=== PATIENT | female | born 1970 | race Hispanic/Latino ===

== ENCOUNTER → 2016-05-11 | Outpatient (CLI) | payer MEDICAID ==
--- NOTE | 2016-05-11 14:35 | Diagnostic Imaging Report ---
EXAM: LUMBAR SPINE - 2-3 VIEWS INDICATION: LOW BACK PAIN COMPARISON: None. FINDINGS: There are 5 lumbar type vertebral bodies. Vertebral body heights are maintained. Mild degenerative endplate changes and lower lumbar facet arthropathy. Normal alignment. No acute fractures. IMPRESSION: Mild spondylotic changes in the lumbar spine. No acute radiographic findings. Dictated by: Dictated on workstation # [id number]
== END ==
LOC: RAD 12:42
PROVIDERS: ATTEND Pain Medicine Pain Medicine
DX: M54.5 Low back pain (principal)
CPT/HCPCS: 72100

== ENCOUNTER → 2016-05-13 | Outpatient (CLI) | payer MEDICAID | LOC: CARD 13:58 | PROVIDERS: ATTEND Radiology Radiation Oncology | DX: C73 Malignant neoplasm of thyroid gland (principal) | CPT/HCPCS: 79005 ==

== ENCOUNTER → 2016-05-25 | Outpatient (CLI) | payer MEDICAID ==
--- NOTE | 2016-05-25 15:47 | Diagnostic Imaging Report ---
STUDY: Whole body Iodine scan. TECHNIQUE: After the oral administration of 63.1 mCi iodine-131, 12 days prior to scanning, whole body scan images are performed at this time. INDICATION: Thyroid cancer. FINDINGS: There is expected thyroid bed intense activity related to remaining thyroid tissue with or without elements of remaining thyroid cancer. There is a diffuse nonfocal the mild to moderate increased liver uptake seen. This is likely physiologic based on the pattern of uptake. There is no evidence of metastatic disease. IMPRESSION: Thyroid bed activity as above. There is a diffuse homogeneous increased uptake in the liver likely physiologic. Correlation with liver ultrasound to confirm lack of underlying lesion is recommended. Dictated by: Dictated on workstation # [id number]
== END ==
LOC: CARD 14:46
PROVIDERS: ATTEND Radiology Radiation Oncology
DX: C73 Malignant neoplasm of thyroid gland (principal)
CPT/HCPCS: 78018

== ENCOUNTER 2016-06-09 13:49 | Outpatient (RCR) | payer MEDICAID, OTHER ==
[2016-04-02 08:00] LABS: THYROGLOBULIN LEVELC 24.3 ng/mL (1.60-59.90)
[2016-04-02 16:30] LABS: THYROGLOBULIN AUTOANTIBODY PT 0.05 Units (0.00-0.50)
[~2016-06-09 13:49] MED LIST: THYROTROPIN 1.1 MG VIAL IM SCH
== END 2016-06-29 | disposition home or self-care (01) ==
LOC: ONC 13:49
PROVIDERS: ATTEND Radiology Radiation Oncology
DX: C73 Malignant neoplasm of thyroid gland (principal)
CPT/HCPCS: 36415; 84432; 84443; 84703; 86800; 96372; 99211; 99214

== ENCOUNTER 2016-06-12 10:48 | Outpatient (CLI) | payer MEDICAID ==
[~2016-06-12] VITALS: Ht 160 cm; Wt 56.2 kg
--- OUTSIDE RECORDS SUMMARY | 2016-06-12 10:53 | XMS REPORT | Continuity of Care Document ---
Author Author [facility] Address Unknown Phone Unavailable Allergies Active Description Code Type Severity Reaction Onset Reported/Identified Relationship to Patient Clinical Status Yes Penicillins Drug Allergy 06/13/2012 Yes Penicillins Drug Allergy N/A N/A 06/13/2012 Medications Problems Date Dx Coded Attending Type Code Diagnosis Diagnosed By 06/13/2012 SHAYLA DANIELSON MD 599.0 URINARY TRACT INFECTION 06/13/2012 SHAYLA DANIELSON MD 620.2 OVARIAN CYST 06/13/2012 SHAYLA DANIELSON MD V04.81 FLU DX (3 YRS AND ABOVE, IM) 06/13/2012 599.0 URINARY TRACT INFECTION 06/13/2012 620.2 OVARIAN CYST 06/13/2012 V04.81 FLU DX (3 YRS AND ABOVE, IM) 06/13/2012 TALISHA DDS, LAZARO L 599.0 URINARY TRACT INFECTION 06/13/2012 GREEN DDS, LAZARO L 620.2 OVARIAN CYST 06/13/2012 GREEN DDS, LAZARO L V04.81 FLU DX (3 YRS AND ABOVE, IM) 06/13/2012 SHAYLA DANIELSON MD 599.0 URINARY TRACT INFECTION 06/13/2012 SHAYLA DANIELSON MD 620.2 OVARIAN CYST 06/13/2012 SHAYLA DANIELSON MD V04.81 FLU DX (3 YRS AND ABOVE, IM) 06/13/2012 SHAYLA DANIELSON MD 599.0 URINARY TRACT INFECTION 06/13/2012 SHAYLA DANIELSON MD 620.2 OVARIAN CYST 06/13/2012 SHAYLA DANIELSON MD V04.81 FLU DX (3 YRS AND ABOVE, IM) 06/13/2012 ALCIDES BURNS K 599.0 URINARY TRACT INFECTION 06/13/2012 ALCIDES BURNS K 620.2 OVARIAN CYST 06/13/2012 ALCIDES BURNS K V04.81 FLU DX (3 YRS AND ABOVE, IM) 06/13/2012 [facility], ALCIDES K 599.0 URINARY TRACT INFECTION 06/13/2012 [facility], ALCIDES K 620.2 OVARIAN CYST 06/13/2012 [facility], ALCIDES K V04.81 FLU DX (3 YRS AND ABOVE, IM) 06/13/2012 [facility], ALCIDES K 599.0 URINARY TRACT INFECTION 06/13/2012 [facility], ALCIDES K 620.2 [facility]VARIAN CYST [facility] V04.81 FLU DX (3 YRS AND ABOVE, IM) 06/13/2012 SHAYLA DANIELSON MD 599.0 URINARY TRACT INFECTION 06/13/2012 JAGJIT VERGARA, SHAYLA Mchugh 620.2 OVARIAN CYST 06/13/2012 SHAYLA DANIELSON MD V04.81 FLU DX (3 YRS AND ABOVE, IM) 06/13/2012 SHAYLA DANIELSON MD 599.0 URINARY TRACT INFECTION 06/13/2012 SHAYLA DANIELSON MD 620.2 OVARIAN CYST 06/13/2012 SHAYLA DANIELSON MD V04.81 FLU DX (3 YRS AND ABOVE, IM) 06/13/2012 SHAYLA DANIELSON MD 599.0 URINARY TRACT INFECTION 06/13/2012 SHAYLA DANIELSON MD 620.2 OVARIAN CYST 06/13/2012 SHAYLA DANIELSON MD V04.81 FLU DX (3 YRS AND ABOVE, IM) 06/13/2012 [facility], ALCIDES K 599.0 URINARY TRACT INFECTION 06/13/2012 [facility], ALCIDES K 620.2 OVARIAN CYST 06/13/2012 [facility] V04.81 FLU DX (3 YRS AND ABOVE, IM) 06/13/2012 ELIAN VERGARA, MARS 599.0 URINARY TRACT INFECTION 06/13/2012 ELIAN VERGARA, MARS 620.2 OVARIAN CYST 06/13/2012 ELIAN VERGARA, MARS V04.81 FLU DX (3 YRS AND ABOVE, IM) 06/13/2012 GREEN DDS, LAZARO L 599.0 URINARY TRACT INFECTION 06/13/2012 GREEN DDS, LAZARO L 620.2 OVARIAN CYST 06/13/2012 GREEN DDS, LAZARO L V04.81 FLU DX (3 YRS AND ABOVE, IM) 06/13/2012 GREEN DDS, LAZARO L 599.0 URINARY TRACT INFECTION 06/13/2012 GREEN DDS, LAZARO L 620.2 OVARIAN CYST 06/13/2012 GREEN DDS, LAZARO L V04.81 FLU DX (3 YRS AND ABOVE, IM) 06/13/2012 SHAYLA DANIELSON MD 599.0 URINARY TRACT INFECTION 06/13/2012 SHAYLA DANIELSON MD 620.2 OVARIAN CYST 06/13/2012 SHAYLA DANIELSON MD V04.81 FLU DX (3 YRS AND ABOVE, IM) 06/13/2012 [facility], ALCIDES K 599.0 URINARY TRACT INFECTION 06/13/2012 [facility], ALCIDES K 620.2 OVARIAN CYST 06/13/2012 [facility] V04.81 FLU DX (3 YRS AND ABOVE, IM) 06/13/2012 SHAYLA DANIELSON MD 599.0 URINARY TRACT INFECTION 06/13/2012 SHAYLA DANIELSON MD 620.2 OVARIAN CYST 06/13/2012 SHAYLA DANIELSON MD V04.81 FLU DX (3 YRS AND ABOVE, IM) 06/13/2012 GENSWEIDER DDS, JACKY M 599.0 URINARY TRACT INFECTION 06/13/2012 GENSWEIDER DDS, JACKY M 620.2 OVARIAN CYST 06/13/2012 GENSWEIDER DDS, JACKY M V04.81 FLU DX (3 YRS AND ABOVE, IM) 06/13/2012 [facility], ALCIDES K 599.0 URINARY TRACT INFECTION 06/13/2012 [facility] 620.2 OVARIAN CYST 06/13/2012 [facility] V04.81 FLU DX (3 YRS AND ABOVE, IM) 06/13/2012 GENSWEIDER DDS, JACKY M 599.0 URINARY TRACT INFECTION 06/13/2012 GENSWEIDER DDS, JACKY M 620.2 OVARIAN CYST 06/13/2012 GENSWEIDER DDS, JACKY M V04.81 FLU DX (3 YRS AND ABOVE, IM) 06/28/2012 V25.02 CONTRACEPTION - ANY METHOD 06/28/2012 V25.09 CONTRACEPTIVE COUNSELING - GENERAL 06/28/2012 GREEN DDS, LAZARO L V25.02 CONTRACEPTION - ANY METHOD 06/28/2012 GREEN DDS, LAZARO L V25.09 CONTRACEPTIVE COUNSELING - GENERAL 06/28/2012 JAGJIT VERGARA, SHAYLA Mchugh V25.02 CONTRACEPTION - ANY METHOD 06/28/2012 JAGJIT VERGARA, SHAYLA Mchugh V25.09 CONTRACEPTIVE COUNSELING - GENERAL 06/28/2012 JAGJIT VERGARA, SHAYLA Mchugh V25.02 CONTRACEPTION - ANY METHOD 06/28/2012 JAGJIT VERGARA, SHAYLA Mchugh V25.09 CONTRACEPTIVE COUNSELING - GENERAL 06/28/2012 [facility], ALCIDES K V25.02 CONTRACEPTION - ANY METHOD 06/28/2012 [facility] V25.09 CONTRACEPTIVE COUNSELING - GENERAL 06/28/2012 [facility], ALCIDES K V25.02 CONTRACEPTION - ANY METHOD 06/28/2012 [facility], ALCIDES K V25.09 CONTRACEPTIVE COUNSELING - GENERAL 06/28/2012 [facility], ALCIDES K V25.02 CONTRACEPTION - ANY METHOD 06/28/2012 [facility], ALCIDES K V25.09 CONTRACEPTIVE COUNSELING - GENERAL 06/28/2012 JAGJIT VERGARA, SHAYLA Mchugh V25.02 CONTRACEPTION - ANY METHOD 06/28/2012 JAGJIT VERGARA, SHAYLA Mchugh V25.09 CONTRACEPTIVE COUNSELING - GENERAL 06/28/2012 SHAYLA DANIELSON MD V25.02 CONTRACEPTION - ANY METHOD 06/28/2012 JAGJIT VERGARA, SHAYLA Mchugh V25.09 CONTRACEPTIVE COUNSELING - GENERAL 06/28/2012 JAGJIT VERGARA, SHAYLA Mchugh V25.02 CONTRACEPTION - ANY METHOD 06/28/2012 SHAYLA DANIELSON MD V25.09 CONTRACEPTIVE COUNSELING - GENERAL 06/28/2012 [facility], ALCIDES Delacruz V25.02 CONTRACEPTION - ANY METHOD 06/28/2012 [facility], ALCIDES Delacruz V25.09 CONTRACEPTIVE COUNSELING - GENERAL 06/28/2012 ELIAN VERGARA, MARS V25.02 CONTRACEPTION - ANY METHOD 06/28/2012 ELIAN VERGARA, MARS V25.09 CONTRACEPTIVE COUNSELING - GENERAL 06/28/2012 GREEN DDS, LAZARO L V25.02 CONTRACEPTION - ANY METHOD 06/28/2012 GREEN DDS, LAZARO L V25.09 CONTRACEPTIVE COUNSELING - GENERAL 06/28/2012 GREEN DDS, LAZARO L V25.02 CONTRACEPTION - ANY METHOD 06/28/2012 GREEN DDS, LAZARO L V25.09 CONTRACEPTIVE COUNSELING - GENERAL 06/28/2012 SHAYLA DANIELSON MD V25.02 CONTRACEPTION - ANY METHOD 06/28/2012 SHAYLA DANIELSON MD V25.09 CONTRACEPTIVE COUNSELING - GENERAL 06/28/2012 [facility], ALCIDES Delacruz V25.02 CONTRACEPTION - ANY METHOD 06/28/2012 [facility], ALCIDES Del[place] V25.09 CONTRACEPTIVE COUNSELING - GENERAL 06/28/2012 SHAYLA DANIELSON MD V25.02 CONTRACEPTION - ANY METHOD 06/28/2012 SHAYLA DANIELSON MD V25.09 CONTRACEPTIVE COUNSELING - GENERAL 06/28/2012 GENSWE[facility] DDS, JACKY M V25.02 CONTRACEPTION - ANY METHOD 06/28/2012 GENSWEIDER DDS, JACKY M V25.09 CONTRACEPTIVE COUNSELING - GENERAL 06/28/2012 [facility], ALCIDES Del[place]ruz V25.02 CONTRACEPTION - ANY METHOD 06/28/2012 [facility], ALCIDES [place] V25.09 CONTRACEPTIVE COUNSELING - GENERAL 06/28/2012 GENSWEIDER DDS, JACKY M V25.02 CONTRACEPTION - ANY METHOD 06/28/2012 [facility]ENSWE[facility] DDS, JACKY M V25.09 CONTRACEPTIVE COUNSELING - GENERAL 11/04/2012 GREEN DDS, LAAZRO L 381.01 ACUTE SEROUS OTITIS MEDIA 11/04/2012 GREEN DDS, LAZARO L 916.4 INSECT BITE NONVENOMOUS OF HIP THIGH LEG AND ANKLE WITHOUT INFECTION 11/04/2012 SHAYLA DANIELSON MD 381.01 ACUTE SEROUS OTITIS MEDIA 11/04/2012 SHAYLA DANIELSON MD 916.4 INSECT BITE NONVENOMOUS OF HIP THIGH LEG AND ANKLE WITHOUT INFECTION 11/04/2012 SHAYLA DANIELSON MD 381.01 ACUTE SEROUS OTITIS MEDIA 11/04/2012 SHAYLA DANIELSON MD 916.4 INSECT BITE NONVENOMOUS OF HIP THIGH LEG AND ANKLE WITHOUT INFECTION 11/04/2012 [facility] 381.01 ACUTE SEROUS OTITIS MEDIA 11/04/2012 [facility], ALCIDES K 916.4 INSECT BITE NONVENOMOUS OF HIP THIGH LEG AND ANKLE WITHOUT INFECTION 11/04/2012 [facility], ALCIDES Delacruz 381.01 ACUTE SEROUS OTITIS MEDIA 11/04/2012 [facility] INSECT BITE NONVENOMOUS OF HIP THIGH LEG AND ANKLE WITHOUT INFECTION 11/04/2012 [facility], ALCIDES K 381.01 ACUTE SEROUS OTITIS MEDIA 11/04/2012 [facility], ALCIDES K 916.4 INSECT BITE NONVENOMOUS OF HIP THIGH LEG AND ANKLE WITHOUT INFECTION 11/04/2012 SHAYLA DANIELSON MD 381.01 ACUTE SEROUS OTITIS MEDIA 11/04/2012 SHAYLA DANIELSON MD 916.4 INSECT BITE NONVENOMOUS OF HIP THIGH LEG AND ANKLE WITHOUT INFECTION 11/04/2012 SHAYLA DANIELSON MD 381.01 ACUTE SEROUS OTITIS MEDIA 11/04/2012 SHAYLA DANIELSON MD 916.4 INSECT BITE NONVENOMOUS OF HIP THIGH LEG AND ANKLE WITHOUT INFECTION 11/04/2012 SHAYLA DANIELSON MD 381.01 ACUTE SEROUS OTITIS MEDIA 11/04/2012 SHAYLA DANIELSON MD 916.4 INSECT BITE NONVENOMOUS OF HIP THIGH LEG AND ANKLE WITHOUT INFECTION 11/04/2012 [facility], ALCIDES K 381.01 ACUTE SEROUS OTITIS MEDIA 11/04/2012 [facility] 916.4 INSECT BITE NONVENOMOUS OF HIP THIGH LEG AND ANKLE WITHOUT INFECTION 11/04/2012 MARS PLUMMER MD 381.01 ACUTE SEROUS OTITIS MEDIA 11/04/2012 MARS PLUMMER MD 916.4 INSECT BITE NONVENOMOUS OF HIP THIGH LEG AND ANKLE WITHOUT INFECTION 11/04/2012 GREEN DDS, LZAARO L 381.01 ACUTE SEROUS OTITIS MEDIA 11/04/2012 GREEN DDS, LAZARO L 916.4 INSECT BITE NONVENOMOUS OF HIP THIGH LEG AND ANKLE WITHOUT INFECTION 11/04/2012 GREEN DDS, LAZARO L 381.01 ACUTE SEROUS OTITIS MEDIA 11/04/2012 GREEN DDS, LAZARO L 916.4 INSECT BITE NONVENOMOUS OF HIP THIGH LEG AND ANKLE WITHOUT INFECTION 11/04/2012 SHAYLA DANIELSON MD 381.01 ACUTE SEROUS OTITIS MEDIA 11/04/2012 SHAYLA DANIELSON MD 916.4 INSECT BITE NONVENOMOUS OF HIP THIGH LEG AND ANKLE WITHOUT INFECTION 11/04/2012 [facility], ALCIDES K 381.01 ACUTE SEROUS OTITIS MEDIA 11/04/2012 [facility]16.4 INSECT BITE NONVENOMOUS OF HIP THIGH LEG AND ANKLE WITHOUT INFECTION 11/04/2012 SHAYLA DANIELSON MD 381.01 ACUTE SEROUS OTITIS MEDIA 11/04/2012 SHAYLA DANIELSON MD 916.4 INSECT BITE NONVENOMOUS OF HIP THIGH LEG AND ANKLE WITHOUT INFECTION 11/04/2012 GENSWEIDER DDS, JACKY M 381.01 ACUTE SEROUS OTITIS MEDIA 11/04/2012 GENSWEIDER DDS, JACKY M 916.4 INSECT BITE NONVENOMOUS OF HIP THIGH LEG AND ANKLE WITHOUT INFECTION 11/04/2012 [facility], ALCIDES K 381.01 ACUTE SEROUS OTITIS MEDIA 11/04/2012 [facility], ALCIDES K 916.4 INSECT BITE NONVENOMOUS OF HIP THIGH LEG AND ANKLE WITHOUT INFECTION 11/04/2012 GENSWEIDER DDS, JACKY M 381.01 ACUTE SEROUS OTITIS MEDIA 11/04/2012 GENSWEIDER DDS, JACKY M 916.4 INSECT BITE NONVENOMOUS OF HIP THIGH LEG AND ANKLE WITHOUT INFECTION 10/05/2013 SHAYLA DANIELSON MD 788.41 URINARY FREQUENCY 10/05/2013 SHAYLA DANIELSON MD 850.9 CONCUSSION UNSPECIFIED 10/05/2013 SHAYLA DANIELSON MD 788.41 URINARY FREQUENCY 10/05/2013 SHAYLA DANIELSON MD 850.9 CONCUSSION UNSPECIFIED 10/05/2013 [facility], ALCIDES K 788.41 URINARY FREQUENCY 10/05/2013 [facility], ALCIDES K 850.9 CONCUSSION UNSPECIFIED 10/05/2013 [facility], ALCIDES K 788.41 URINARY FREQUENCY 10/05/2013 [facility], ALCIDES K 850.9 CONCUSSION UNSPECIFIED 10/05/2013 [facility], ALCIDES K 788.41 URINARY FREQUENCY 10/05/2013 [facility], ALCIDES K 850.9 CONCUSSION UNSPECIFIED 10/05/2013 SHAYLA DANIELSON MD 788.41 URINARY FREQUENCY 10/05/2013 SHAYLA DANIELSON MD 850.9 CONCUSSION UNSPECIFIED 10/05/2013 SHAYLA DANIELSON MD 788.41 URINARY FREQUENCY 10/05/2013 SHAYLA DANIELSON MD 850.9 CONCUSSION UNSPECIFIED 10/05/2013 SHAYLA DANIELSON MD 788.41 URINARY FREQUENCY 10/05/2013 SHAYLA DANIELSON MD 850.9 CONCUSSION UNSPECIFIED 10/05/2013 [facility], ALCIDES K 788.41 URINARY FREQUENCY 10/05/2013 [facility], ALCIDES K 850.9 CONCUSSION UNSPECIFIED 10/05/2013 ELIAN VERGARA, MARS 788.41 URINARY FREQUENCY 10/05/2013 ELIAN VERGARA, MARS 850.9 CONCUSSION UNSPECIFIED 10/05/2013 GREEN DDS, LAZARO L 788.41 URINARY FREQUENCY 10/05/2013 GREEN DDS, LAZARO L 850.9 CONCUSSION UNSPECIFIED 10/05/2013 GREEN DDS, LAZARO L 788.41 URINARY FREQUENCY 10/05/2013 GREEN DDS, LAZARO L 850.9 CONCUSSION UNSPECIFIED 10/05/2013 JAGJIT VERGARA, SHAYLA Mchugh 788.41 URINARY FREQUENCY 10/05/2013 SHAYLA DANIELSON MD 850.9 CONCUSSION UNSPECIFIED 10/05/2013 [facility], ALCIDES K 788.41 URINARY FREQUENCY 10/05/2013 [facility], ALCIDES K 850.9 CONCUSSION UNSPECIFIED 10/05/2013 SHAYLA DANIELSON MD 788.41 URINARY FREQUENCY 10/05/2013 SHAYLA DANIELSON MD 850.9 CONCUSSION UNSPECIFIED 10/05/2013 [facility] D[facility], JCAKY M 788.41 URINARY FREQUENCY 10/05/2013 [facility] DDS, JACKY M 850.9 CONCUSSION UNSPECIFIED 10/05/2013 [facility], ALCIDES K 788.41 URINARY FREQUENCY 10/05/2013 [facility], ALCIDES K 850.9 CONCUSSION UNSPECIFIED 10/05/2013 [facility]ENS[facility] DDS, JACKY M 788.41 URINARY FREQUENCY 10/05/2013 GENSWE[facility] DDS, JACKY M 850.9 CONCUSSION UNSPECIFIED 11/01/2013 [facility], ALCIDES K 300.00 AN ANXIETY UNSPEC 11/01/2013 [facility], ALCIDES K 311 MO DEPRESS NOS 11/01/2013 [facility], ALCIDES K 300.00 AN ANXIETY UNSPEC 11/01/2013 [facility], ALCIDES K 311 MO DEPRESS NOS 11/01/2013 [facility], ALCIDES K 300.00 AN ANXIETY UNSPEC 11/01/2013 [facility], ALCIDES K 311 MO DEPRESS NOS 11/01/2013 SHAYLA DANIELSON MD 300.00 AN ANXIETY UNSPEC 11/01/2013 SHAYLA DANIELSON MD 311 MO DEPRESS NOS 11/01/2013 SHAYLA DANIELSON MD 300.00 AN ANXIETY UNSPEC 11/01/2013 SHAYLA DANIELSON MD 311 MO DEPRESS NOS 11/01/2013 SHAYLA DANIELSON MD 300.00 AN ANXIETY UNSPEC 11/01/2013 SHAYLA DANIELSON MD 311 MO DEPRESS NOS 11/01/2013 [facility], ALCIDES K 300.00 AN ANXIETY UNSPEC 11/01/2013 [facility], ALCIDES K 311 MO DEPRESS NOS 11/01/2013 ROMÁN PLUMMER MDATI 300.00 AN ANXIETY UNSPEC 11/01/2013 ELIAN VERGARA MARS 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 11/01/2013 GREEN DDS, LAZARO L 300.00 AN ANXIETY UNSPEC 11/01/2013 GREEN DDS, LAZARO L 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 11/01/2013 GREEN DDS, LAZARO L 300.00 AN ANXIETY UNSPEC 11/01/2013 GREEN DDS, LAZARO L 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 11/01/2013 SHAYLA DANIELSON MD 300.00 AN ANXIETY UNSPEC 11/01/2013 SHAYLA DANIELSON MD 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 11/01/2013 [facility], ALCIDES K 300.00 AN ANXIETY UNSPEC 11/01/2013 [facility], ALCIDES K 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 11/01/2013 SHAYLA DANIELSON MD 300.00 AN ANXIETY UNSPEC 11/01/2013 SHAYLA DANIELSON MD 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 11/01/2013 GENEIDER DDS, JACKY M 300.00 AN ANXIETY UNSPEC 11/01/2013 GENEIDER DDS, JACKY M 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 11/01/2013 [facility], ALCIDES K 300.00 AN ANXIETY UNSPEC 11/01/2013 [facility], ALCIDES K 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 11/01/2013 GENSWEIDER DDS, JACKY M 300.00 AN ANXIETY UNSPEC 11/01/2013 GENEIDER DDS, JACKY M 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 12/01/2013 SHAYLA DANIELSON MD 724.2 BACK PAIN, LOWER 12/01/2013 SHAYLA DANIELSON MD 998.32 DISRUPTION OF EXTERNAL OPERATION (SURGICAL ) WOUND 12/01/2013 SHAYLA DANIELSON MD 724.2 BACK PAIN, LOWER 12/01/2013 SHAYLA DANIELSON MD 998.32 DISRUPTION OF EXTERNAL OPERATION (SURGICAL ) WOUND 12/01/2013 SHAYLA DANIELSON MD 724.2 BACK PAIN, LOWER 12/01/2013 SHAYLA DANIELSON MD 998.32 DISRUPTION OF EXTERNAL OPERATION (SURGICAL ) WOUND 12/01/2013 [facility], ALCIDES K 724.2 BACK PAIN, LOWER 12/01/2013 [facility], ALCIDES K 998.32 DISRUPTION OF EXTERNAL OPERATION ( SURGICAL) WOUND 12/01/2013 ELIAN VERGARA, MARS 724.2 BACK PAIN, LOWER 12/01/2013 ELIAN VERGARA, MARS 998.32 DISRUPTION OF EXTERNAL OPERATION (SURGICAL ) WOUND 12/01/2013 GREEN DDS, LAZARO L 724.2 BACK PAIN, LOWER 12/01/2013 GREEN DDS, LAZARO L 998.32 DISRUPTION OF EXTERNAL OPERATION (SURGICAL) WOUND 12/01/2013 GREEN DDS, LAZARO L 724.2 BACK PAIN, LOWER 12/01/2013 GREEN DDS, LAZARO L 998.32 DISRUPTION OF EXTERNAL OPERATION (SURGICAL) WOUND 12/01/2013 SHAYLA DANIELSON MD 724.2 BACK PAIN, LOWER 12/01/2013 SHAYLA DANIELSON MD 998.32 DISRUPTION OF EXTERNAL OPERATION (SURGICAL ) WOUND 12/01/2013 [facility], ALCIDES K 724.2 BACK PAIN, LOWER 12/01/2013 [facility], ALCIDES K 998.32 DISRUPTION OF EXTERNAL OPERATION ( SURGICAL) WOUND 12/01/2013 SHAYLA DANIELSON MD 724.2 BACK PAIN, LOWER 12/01/2013 SHAYLA DANIELSON MD 998.32 DISRUPTION OF EXTERNAL OPERATION (SURGICAL ) WOUND 12/01/2013 GENSWEIDER DDS, JACKY M 724.2 BACK PAIN, LOWER 12/01/2013 SIVAKUMAR DDS, JACKY Vazquez 998.32 DISRUPTION OF EXTERNAL OPERATION ( SURGICAL) WOUND 12/01/2013 [facility], ALCIDES K 724.2 BACK PAIN, LOWER 12/01/2013 [facility], ALCIDES K 998.32 DISRUPTION OF EXTERNAL OPERATION ( SURGICAL) WOUND 12/01/2013 GENSWEIDER DDS, JACKY Taylor 724.2 BACK PAIN, LOWER 12/01/2013 GENSWEIDER DDS, JACKY M 998.32 DISRUPTION OF EXTERNAL OPERATION ( SURGICAL) WOUND 01/16/2014 GREEN DDS, LAZARO L 296.32 MO DEPRESSIVE RECURRENT MODERATE 01/16/2014 GREEN DDS, LAZARO L 296.32 MO DEPRESSIVE RECURRENT MODERATE 01/16/2014 SHAYLA DANIELSON MD 296.32 MO DEPRESSIVE RECURRENT MODERATE 01/16/2014 [facility], ALCIDES K 296.32 MO DEPRESSIVE RECURRENT MODERATE 01/16/2014 SHAYLA DANIELSON MD 296.32 MO DEPRESSIVE RECURRENT MODERATE 01/16/2014 GENROMÁNEIDER DDS, JACKY M 296.32 MO DEPRESSIVE RECURRENT MODERATE 01/16/2014 [facility], ALCIDES K 296.32 MO DEPRESSIVE RECURRENT MODERATE 01/16/2014 GENROMÁNEIDER DDS, JACKY M 296.32 MO DEPRESSIVE RECURRENT MODERATE 05/22/2014 [facility], ALCIDES K 285.9 ANEMIA 05/22/2014 [facility], ALCIDES K 789.01 ABDOMINAL PAIN RIGHT UPPER QUADRANT 05/22/2014 SHAYAL DANIELSON MD A 285.9 ANEMIA 05/22/2014 SHAYLA DANIELSON MD 789.01 ABDOMINAL PAIN RIGHT UPPER QUADRANT 05/22/2014 GENSWEIDER DDS, JACKY M 285.9 ANEMIA 05/22/2014 GENSWEIDER DDS, JACKY M 789.01 ABDOMINAL PAIN RIGHT UPPER QUADRANT 05/22/2014 [facility], ALCIDES K 285.9 ANEMIA 05/22/2014 [facility], ALCIDES K 789.01 ABDOMINAL PAIN RIGHT UPPER QUADRANT 05/22/2014 GENSWEIDER DDS, JACKY M 285.9 ANEMIA 05/22/2014 GENSWEIDER DDS, JACKY M 789.01 ABDOMINAL PAIN RIGHT UPPER QUADRANT 06/07/2014 SHAYLA DANIELSON MD 110.5 TINEA CORPORIS 06/07/2014 SHAYLA DANIELSON MD 719.45 PAIN IN JOINT INVOLVING PELVIC REGION AND THIGH 06/07/2014 SHAYLA DANIELSON MD 723.1 CERVICALGIA 06/07/2014 GENROMÁNEIKAMLA DDS, JACKY Vazquez 110.5 TINEA CORPORIS 06/07/2014 SHAUNNAEIKAMLA DDS, JACKY M 719.45 PAIN IN JOINT INVOLVING PELVIC REGION AND THIGH 06/07/2014 SIVAKUMAR JACOBSS, JACKY Vazquez 723.1 CERVICALGIA 06/07/2014 ALCIDES BURNS 110.5 TINEA CORPORIS 06/07/2014 ALCIDES BURNS 719.45 PAIN IN JOINT INVOLVING PELVIC REGION AND THIGH 06/07/2014 ALCIDES BURNS 723.1 CERVICALGIA 06/07/2014 JACKY SHAVER DDS 110.5 TINEA CORPORIS 06/07/2014 SIVAKUMAR JACOBSS, JACKY Vazquez 719.45 PAIN IN JOINT INVOLVING PELVIC REGION AND THIGH 06/07/2014 SIVAKUMAR JACOBSS, JACKY Vazquez 723.1 CERVICALGIA 07/24/2014 ALCIDES BURNS 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 07/24/2014 SIVAKUMAR RAMIREZ, JACKY Vazquez 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 Procedures Code Description [place] [address] UA LONG DIP 06/13 75466 CULTURE URINE 95168 UA W/ CULTURE IF INDICATED 10/05/[address] HEAD/BRAIN W/O DYE 10/05/2013 28572 CULTURE URINE 03/2014 95612 PSYCH DIAGNOSTIC EVALUATION 11/03/2013 66193 PSYTX PT&/FAMILY 30 MINUTES 11/07/2013 70077 PSYTX PT&/FAMILY 30 MINUTES 11/17/2013 20342 PSYTX PT&/FAMILY 30 MINUTES 12/01/2013 95564 PSYTX PT&/FAMILY 30 MINUTES 12/08/2013 S0630 SUTURE REMOVAL 70405 PSYTX PT&/FAMILY 60 MINUTES 12/15/2013 46556 PSYTX PT&/FAMILY 30 MINUTES 01/03/2014 32910 ROUTINE VENIPUNCTURE 01/03/2014 00440 BMP 01/03/2014 01390 TSH 01/03/2014 51354 CBC NO 5 PART DIFFERENTIAL 01/03/2014 51944 PSYTX PT&/FAMILY 30 MINUTES 01/16/2014 98814 PSYTX PT&/FAMILY 30 MINUTES 04/03/2014 31699 ROUTINE VENIPUNCTURE 05/29/2014 81972 PERIPHERIAL BLOOD SMEAR 05/29/2014 03478 PSYTX PT&/FAMILY 30 MINUTES 07/24/2014 98598 PSYTX PT&/FAMILY 45 MINUTES 08/08/2014 Results Encounters ACCT No. Visit Date/Time Discharge Status Pt. Type Provider Facility Loc./Unit Complaint [id number] 08/08/2014 14:23:00 08/08/2014 23: 59:59 CLS Outpatient GENSWEIDER DDS, JACKY Vazquez [id number] 07/24/2014 10:52:00 07/24/2014 23: 59:59 CLS Outpatient MEIR [place], ALCIDES Delacruz [id number] 07/10/2014 11:15:00 07/10/2014 23: 59:59 CLS Outpatient GENSWEIDER DDS, JACKY Vazquez [id number] 06/07/2014 10:02:00 06/07/2014 23: 59:59 CLS Outpatient SHAYLA DANIELSON MD [id number] 05/29/2014 12:28:00 05/29/2014 23: 59:59 CLS Outpatient ALCIDES BURNS [id number] 04/03/2014 14:09:00 04/03/2014 23: 59:59 CLS Outpatient SHAYLA DANIELSON MD [id number] 01/16/2014 11:02:00 01/16/2014 23: 59:59 CLS Outpatient TALISHA DDSLAZARO [id number] 01/15/2014 00:00:00 01/15/2014 23: 59:59 CLS Outpatient TALISHA DDSLAZARO [id number] 01/03/2014 14:55:00 01/03/2014 23: 59:59 CLS Outpatient MARS PLUMMER MD [id number] 12/15/2013 12:48:00 12/15/2013 23: 59:59 CLS Outpatient ALCIDES BURNS [id number] 12/08/2013 12:11:00 12/08/2013 23: 59:59 CLS Outpatient SHAYLA DANIELSON MD [id number] 12/04/2013 12:49:00 12/04/2013 23: 59:59 CLS Outpatient SHAYLA DANIELSON MD [id number] 12/01/2013 09:47:00 12/01/2013 23: 59:59 CLS Outpatient SHAYLA DANIELSON MD [id number] 11/17/2013 10:08:00 11/17/2013 23: 59:59 CLS Outpatient ALCIDES BURNS [id number] 11/07/2013 13:31:00 11/07/2013 23: 59:59 CLS Outpatient MEIR MIROSLAVACHIKISDENI Delacruz [id number] 11/01/2013 16:49:00 11/01/2013 23: 59:59 CLS Outpatient [place]IR [place] [id number] 10/05/2013 12:08:00 10/05/2013 23: 59:59 CLS Outpatient SHAYLA DANIELSON MD [id number] 10/05/2013 12:08:00 10/05/2013 23: 59:59 CLS Outpatient SHAYLA DANIELSON MD [id number] 01/04/2013 10:04:00 01/04/2013 23: 59:59 CLS Outpatient LAZARO WOODALL DDS [id number] 06/28/2012 14:32:00 06/28/2012 23: 59:59 CLS Outpatient [id number] 06/13/2012 11:16:00 06/13/2012 23: 59:59 CLS Outpatient SHAYLA DANIELSON MD [id number] 06/13/2012 12:55:27 RECURRING
[2016-06-12] MEDS ORDERED: BUPIVACAINE 0.25% 30 ML (SENSORCAINE) VIAL ONE (10:59)
[2016-06-12] MEDS ORDERED: TRIAMCINOLONE ACET (KENALOG-40) 40 MG/ML 1 ML VIAL ONE (10:59)
[2016-06-12 11:10] VITALS: BP 132/81
[2016-06-12 11:50] VITALS: BP 134/86
--- NOTE | 2016-06-12 14:12 | Pain Medicine-Procedure ---
Procedure Pre-Op/Post-Op Diagnosis Diagnosis: disc disorder with radiculopathy, lumbar Indications for Operation Low back pain Attending Surgeon Fanta Procedure Date of Service: Jun 12, 2016 Procedure: Lumbar Epidural Steroid Injection at the L5-S1 level under Fluoroscopic Guidance Procedure: Patient was identified in the holding area. After risks, benefits, and alternatives were discussed with the patient, informed consent was obtained. Patient was brought to the fluoroscopy suite and placed prone on the procedure room table. A time out was performed. Vital signs were monitored throughout the procedure. The patients low back was prepped and draped in the usual sterile fashion. The patients skin was anesthetized using 2% Lidocaine. A Tuohy needle was inserted and advanced to the L5-S1 epidural space under fluoroscopic guidance using the loss of resistance technique and intermittent projection of fluoroscopy. There was no paresthesia with needle placement. The needle position was confirmed in both the AP and lateral view. After negative aspiration 2ml of contrast was injected under live fluoroscopy which showed good spread of the contrast in the epidural space at the appropriate level, there was no intravascular or subarachnoid spread. Again, after negative aspiration for heme or CSF, 2 ml of 0.25% Bupivicaine, 2ml of preservative free normal saline, and 80mg of Kenalog was injected. The needle was removed and a sterile bandage was placed and the patient was transferred to the recovery area in stable condition. After a brief period of observation, patient was discharged to home with no new neurological deficits and no apparent complications. Complications None VALARIE LYNN MD Jun 12, 2016 2:12 pm
== END 2016-06-12 11:52 | disposition home or self-care (01) ==
LOC: CARD 10:48
PROVIDERS: ATTEND Pain Medicine Pain Medicine
DX: M54.16 Radiculopathy, lumbar region (principal); G89.4 Chronic pain syndrome; Z79.899 Other long term (current) drug therapy
CPT/HCPCS: 62323

== ENCOUNTER 2017-03-27 18:41 | Emergency (ER) | payer SELFPAY ==
[~2017-03-27] VITALS: Ht 160 cm; Wt 61.2 kg
--- OUTSIDE RECORDS SUMMARY | 2017-03-27 18:46 | XMS REPORT ---
Author Author ALLY Navarrete [facility] Address Unknown Care Team Providers Care Spray Gun Repairer Helper Name Role Phone ALLY Navarrete Unavailable PROBLEMS Type Condition ICD9-CM Code [id number] Code Onset Dates Condition Status SNOMED Code Problem Panic disorder F41.0 Active 415256425 Problem Abdominal pain, right upper quadrant R10.11 Active 546902885 Problem Postoperative hypothyroidism E89.0 Active 56261003 Problem Gastroesophageal reflux disease, esophagitis presence not specified K21.9 Active 470949514 Problem Pain in joint, pelvic region and thigh, right M25.551 Active 065125646 Problem Major depressive disorder, recurrent episode, moderate F33.1 Active 337690603 Problem Bilateral low back pain without sciatica M54.5 Active 098028357 Problem Other iron deficiency anemia D50.8 Active 05783401 ALLERGIES Substance Reaction Event Type Date Status Penicillin V Potassium hives Drug Allergy Feb, Active SOCIAL HISTORY No smoking Hx information available PLAN OF CARE Activity Details Follow Up prn, 2 Weeks Reason:framework upper/lower VITAL SIGNS Height 59 in 2016-03-05 Blood pressure systolic 128 mmHg 2016-03-05 Blood pressure diastolic 84 mmHg 2016-03-05 MEDICATIONS Medication Instructions Dosage Frequency Start Date End Date Duration Status Potassium Chloride 10 MEQ Orally Once a day 10 mEq by Oral route 1 time per day 24h Dec, Active Fluoxetine HCl 40 MG Orally once a day 1 capsule in the morning 24h Sep Active Fluoxetine HCl 20 MG Orally Once a day 1 capsule in the morning 24h Nov Active Ferrous Sulfate 325 (65 Fe) MG Orally Twice a day, please provide jamaican instructions 1 tablet Sep, Active Clindamycin HCl 150 MG Orally every 8 hrs 2 capsules 8h 10 days Active Lidocaine 5 % Externally Once a day 1 patch to intact skin remove after 12 hours 24h Jul, Active Celebrex 200 MG Orally Once a day 1 capsule 24h Active Baclofen 10 mg Orally Three times a day, please provide jamaican instructions 1 tablet with food Dec, Active Gabapentin 300 MG Orally Three times a day 1 capsule 8h Oct, Active RESULTS No Results PROCEDURES Procedure Date Ordered Related Diagnosis Body Site RICH PART DENTUR- CAST METL W/RSN Feb 12, 2016 Billing Notes on claim Mar 05, 2016 IMMUNIZATIONS No Known Immunizations
--- OUTSIDE RECORDS SUMMARY | 2017-03-27 18:46 | XMS REPORT ---
Author Author CYNDEEMELLISSA Organization [facility] Address [address] [place] [address] Care Team Providers Care Test Tube Maker Name Role Phone MELLISSA COTTER Unavailable PROBLEMS Type Condition ICD9-CM Code [id number] Code Onset Dates Condition Status SNOMED Code Problem Panic disorder F41.0 Active 465896108 Problem Abdominal pain, right upper quadrant R10.11 Active 666251776 Problem Postoperative hypothyroidism E89.0 Active 12372971 Problem Gastroesophageal reflux disease, esophagitis presence not specified K21.9 Active 901606079 Problem Pain in joint, pelvic region and thigh, right M25.551 Active 064793778 Problem Major depressive disorder, recurrent episode, moderate F33.1 Active 706121367 Problem Bilateral low back pain without sciatica M54.5 Active 805792282 Problem Other iron deficiency anemia D50.8 Active 99620669 ALLERGIES No Information SOCIAL HISTORY Never Assessed PLAN OF CARE VITAL SIGNS MEDICATIONS Unknown Medications RESULTS No Results PROCEDURES No Known procedures IMMUNIZATIONS No Known Immunizations MEDICAL (GENERAL) HISTORY Type Description Date Medical History anemia Medical History depression Medical History Panic attacks Medical History Urinary frequency Medical History Unspecified concussion Medical History Other and unspecified ovarian cyst Medical History Comminuted R sacral fracture Medical History Right pubic bone fracture Medical History R orbital floor fracture Medical History R wrist fracture Medical History thyroid removed on right side Medical History Thyroid cancer Surgical History orthopedic surgery Surgical History tubal ligation Surgical History section Surgical History R wrist fracture repair, carpel tunnel, plate was added Surgical History thyroidectomy, complete Hospitalization History Surgery(s)/Childbirth(s) only
--- OUTSIDE RECORDS SUMMARY | 2017-03-27 18:46 | XMS REPORT | Continuity of Care Document ---
Author Author [facility] Organization [facility] Address [facility] [address] [place] [id number] Phone Unavailable Support Name Relationship Address Phone MELLISSA COTTER/ELIAN CREWS Caregiver [address] [place] [address] SANJEEV STRONG MD Caregiver [address] [place] [id number] BELEN OROSCO Next Of Kin [address] [place] [address] Insurance Providers Payer Name Policy Number Subscriber Name Relationship [facility] [id number] Aggie Carlin 20 Self / Same As Patient Advance Directives Directive Response Recorded Date/Time Advance Directives No 06/07/15 9:07am Living Will No 06/07/15 9:07am Health Care Proxy No 07/07/16 4:29pm Power of Bottoming Room Inspector for Health Care No 06/07/15 9:07am Organ, Tissue, or Eye Donor No 06/07/15 9:07am Do you have a signed organ donor card? No 06/07/15 9:07am Chief Complaint and Reason for Visit Chief Complaint ANKLE PAIN Reason for Visit [id number] Problems Active Problems Medical Problem Onset Date Status Ankle pain, right Unknown Acute Chest pain of uncertain etiology Unknown Acute Fracture of ulnar styloid Unknown Acute Fracture of ulnar styloid Unknown Acute Hematuria Unknown Acute Hematuria Unknown Acute Minor head injury with loss of consciousness Unknown Acute Minor head injury with loss of consciousness Unknown Acute Orbital floor fracture Unknown Acute Orbital floor fracture Unknown Acute Pubic bone fracture Unknown Acute Pubic bone fracture Unknown Acute Radius fracture Unknown Acute Radius fracture Unknown Acute Right ankle sprain Unknown Acute Sacral fracture, closed Unknown Acute Sacral fracture, closed Unknown Acute Wrist pain, right Unknown Acute Medications Current Home Medications Medication Dose Units Route Directions Days/Qty Instructions Start Date Baclofen 10 Mg Unknown Dose Oral Three Times A Day 15 09/29/15 Ibuprofen 600 Mg 600 Mg Oral Every 6 Hours as needed for Pain Naproxen 500 Mg 500 Mg Oral Twice Daily As Needed as needed for Pain 10 11/28/15 Naproxen 500 Mg 500 Mg Oral Twice Daily As Needed for Pain 30 07/07/16 Levothyroxine Sodium 100 Mcg 100 Mcg Oral 1-2 Times Daily 30 07/07/16 Gabapentin 300 Mg 300 Mg Oral Bedtime 30 07/07/16 Trazodone Hcl 300 Mg 150 Mg Oral Twice A Day 07/07/16 Citalopram Hydrobromide 40 Mg 40 Mg Oral 30 07/07/16 Past Home Medications Medication Directions Ordered Status Fluoxetine Hcl 10 Mg Capsule, Unknown Dose Oral Daily 09/29/15 Discontinued Potassium Chloride 10 Meq Tab.prt.sr, Unknown Dose Oral Twice A Day Discontinued Ferrous Gluconate 236 Mg Tablet, Unknown Dose Oral 09/29/15 Discontinued Indomethacin 50 Mg Capsule, 50 Mg Oral Three Times A Day 10/10/15 Discontinued Enoxaparin Sodium 60 Mg/0.6 Ml Disp.syrin, 40 Mg Sub-Q Daily 10/20/15 Discontinued Venlafaxine Hcl 150 Mg Cap.sr.24h, 150 Mg Oral Daily 10/20/15 Discontinued Oxycodone Hcl/Acetaminophen* 1 Tab Tablet, 1 Ea Oral Every 4-6 Hrs As Needed Pain 10/20/15 Discontinued Hydroxyzine Hcl 25 Mg Tablet, 25 Mg Oral Daily At Bedtime as needed for Insomnia 10/20/15 Discontinued Social History Social History Problem Response Recorded Date/Time Smoking Status Current every day smoker 07/07/2016 5:08pm Alcohol Use none 07/07/2016 5:08pm Drug Use none 07/07/2016 5:08pm Query Response Start Date Stop Date Smoking Status Current every day smoker Hospital Discharge Instructions No hospital discharge instructions. Plan of Care Discharge Date 07/07/16 5:30pm Disposition 01 HOME, [facility],ASSISTED LIVING Condition at Discharge Stable Instructions/Education Provided Ankle Sprain (ED) Prescriptions See Medication Section Referrals MELLISSA COTTER/MARS PLUMMER KALAPURAKKAL SUNIL M.D. - Additional Instructions/Education return if your condition worsens or you develop concerning symptoms. otherwise, follow up with your physician as discussed. Functional Status Query Response Date Recorded [place] Coma Scale Total 15 July 07, 2016 4:20pm Patient Behavior Cooperative Appropriate July 07, 2016 4:20pm Allergies, Adverse Reactions, Alerts Allergen Type Severity Reaction Status Last Updated Penicillin Allergy Unknown Active 07/07/16 Immunizations Name Given Type Hx Diphtheria, Pertussis, Tetanus Vaccination Unknown Historical Hx Influenza Vaccination Yes Historical Hx Pneumococcal Vaccination No Historical Hx Tetanus, Diphtheria Vaccination No Historical Hx Tetanus Toxoid Vaccination No Historical Vital Signs Acute Vital Signs Vital Response Date/Time Temperature (Fahrenheit) 98.5 degrees F (97.6 - 99.5) 07/07/2016 4:06pm Temperature Source Temporal Artery 07/07/2016 4:06pm Pulse Rate (adult) 76 bpm (60 - 90) 07/07/2016 5:15pm Respiratory Rate 16 bpm (12 - 24) 07/07/2016 4:30pm Blood Pressure 121/78 mm Hg 07/07/2016 5:00pm O2 Sat by Pulse Oximetry 94 % (90 - 100) 07/07/2016 5:15pm Oxygen Delivery Method 07/07/2016 4:06pm Height 5 ft 3 in Weight 127 lb Body Mass Index 22.0 kg/m^2 Results No known relevant diagnostic tests, laboratory data and/or discharge summary. Procedures Procedure Status Date Provider(s) US gallbladder Active 07/02/16 MELLISSA COTTER/MARS PLUMMER Digital screening mammography of both breasts Active 07/02/16 SEEMA COTTER SWATI X-ray of right ankle, three or more views Completed 07/07/16 SANJEEV STRONG MD Encounters Encounter Location Arrival/Admit Date Discharge/Depart Date Attending Provider Departed Emergency Room [place] 07/07/16 4:05pm 07/07/16 5:30pm SANJEEV STRONG MD Registered Clinic [place] 07/02/16 8:49am FLEX COTTER Recent Diagnosis
--- OUTSIDE RECORDS SUMMARY | 2017-03-27 18:46 | XMS REPORT ---
Author Author MELLISSA COTTER Organization [employer] Address Unknown Phone Unavailable Care Team Providers Care Lead Mechanic Name Role Phone MELLISSA COTTER CP Unavailable Allergies, Adverse Reactions, Alerts Substance Reaction Event Type Penicillin V Potassium hives Drug Allergy Problems Problem Type Condition Code Onset Dates Condition Status Assessment Needs flu shot Z23 Active Assessment Panic disorder F41.0 Active Assessment Other iron deficiency anemia D50.8 Active Problem Pain in joint, pelvic region and thigh, right M25.551 Active Problem Other iron deficiency anemia D50.8 Active Problem Bilateral low back pain without sciatica M54.5 Active Problem Panic disorder F41.0 Active Assessment Major depressive disorder, recurrent episode, moderate F33.1 Active Problem Abdominal pain, right upper quadrant R10.11 Active Problem Major depressive disorder, recurrent episode, moderate F33.1 Active Medications Medication Code System Code Instructions Start Date End Date Status Dosage Celebrex [facility] [address]-31 200 MG Orally Once a day 1 capsule Ferrous Sulfate [facility] [address]-27 325 (65 Fe) MG Orally Twice a day, please provide lithuanian instructions October 04, 2014 1 tablet Effexor XR [facility] [address]-74 75 MG Orally Once a day Apr 02, 2015 1 cap Fluoxetine HCl [facility] [address]-51 20 MG Orally once daily, please provide lithuanian instructions October 04, 2014 2 capsule in the morning Gabapentin [facility] [address]-75 100 MG Orally Three times a day, please provide lithuanian instructions October 04, 2014 1 capsule Potassium Chloride [facility] [address]-52 20 mEq Jan 04, 2014 10 mEq by Oral route 1 time per day Effexor XR [facility] [address]-15 150 MG Orally Once a day Apr 02, 2015 1 cap Baclofen [facility] [address]-06 10 MG Orally Three times a day, please provide lithuanian instructions Jan 02, 2015 1/2 tablet with food or milk Procedures Procedure Coding System Code Date COMPLETE CBC W/AUTO DIFF WBC CPT-4 04661 Apr 02, 2015 Office Visit, Est Pt., Level 4 CPT-4 79182 Apr 02, 2015 MEASURE BLOOD OXYGEN LEVEL CPT-4 67768 Apr 02, 2015 VENIPUNCT, ROUTINE* CPT-4 98817 Apr 02, 2015 SINGLE IMMUNIZATION ADMIN CPT-4 53472 Apr 02, 2015 Vital Signs Date/Time: Apr 02, 2015 Temperature 97.6 F Weight 129 lbs Height 59 in Oximetry 100 % Blood Pressure Diastolic 62 mmHg Blood Pressure Systolic 118 mmHg Cardiac Monitoring Heart Rate 85 bpm BMI 26.05 Index Results Name Result Date Reference Range Unit Abnormality Flag ROUTINE VENIPUNCTURE Immunizations Vaccine Administration Date Influenza (History) Apr 02, 2015 Summary Purpose [employer] Submission
--- OUTSIDE RECORDS SUMMARY | 2017-03-27 18:46 | XMS REPORT ---
Author Author MELLISSA COTTER Organization [facility] Address [address] [place] [address] Care Team Providers Care Retail Brand Ambassador Name Role Phone MELLISSA COTTER Unavailable PROBLEMS Type Condition ICD9-CM Code [id number] Code Onset Dates Condition Status SNOMED Code Problem Thyroid cancer C73 Active 692527526 Problem Major depressive disorder, recurrent episode, moderate F33.1 Active 387840841 Problem Panic disorder F41.0 Active 567425780 Problem Thyroid nodule E04.1 Active 322346973 Problem Gastroesophageal reflux disease, esophagitis presence not specified K21.9 Active 892042724 Problem Other iron deficiency anemia D50.8 Active 20697004 Problem Abdominal pain, right upper quadrant R10.11 Active 572833069 Problem Bilateral low back pain without sciatica M54.5 Active 711909917 Problem Pain in joint, pelvic region and thigh, right M25.551 Active 863986911 ALLERGIES Unknown Allergies SOCIAL HISTORY No smoking Hx information available PLAN OF CARE VITAL SIGNS MEDICATIONS Unknown Medications RESULTS No Results PROCEDURES No Known procedures IMMUNIZATIONS No Known Immunizations
--- OUTSIDE RECORDS SUMMARY | 2017-03-27 18:46 | XMS REPORT ---
Author Author CYNDEEMELLISSA Organization [facility] Address [address] [place] [address] Care Team Providers Care Pastry Mixer Name Role Phone MELLISSA COTTER Unavailable PROBLEMS Type Condition ICD9-CM Code RHK54-OS Code Onset Dates Condition Status SNOMED Code Problem Panic disorder F41.0 Active 065948284 Problem Abdominal pain, right upper quadrant R10.11 Active 556251703 Problem Postoperative hypothyroidism E89.0 Active 31959907 Problem Gastroesophageal reflux disease, esophagitis presence not specified K21.9 Active 551381351 Problem Pain in joint, pelvic region and thigh, right M25.551 Active 070602884 Problem Major depressive disorder, recurrent episode, moderate F33.1 Active 488075616 Problem Bilateral low back pain without sciatica M54.5 Active 153507674 Problem Other iron deficiency anemia D50.8 Active 56920514 ALLERGIES No Information SOCIAL HISTORY Never Assessed [...]
--- OUTSIDE RECORDS SUMMARY | 2017-03-27 18:46 | XMS REPORT ---
Author Author MELLISSA COTTER Organization [employer] Address Unknown Phone Unavailable Care Team Providers Care Hogshead Salvage Name Role Phone MELLISSA COTTER CP Unavailable Allergies No Known Allergies Problems Problem Type Condition Code Onset Dates Condition Status Problem Panic disorder F41.0 Active Problem Gastroesophageal reflux disease, esophagitis presence not specified K21.9 Active Problem Bilateral low back pain without sciatica M54.5 Active Problem Thyroid nodule E04.1 Active Problem Abdominal pain, right upper quadrant R10.11 Active Problem Major depressive disorder, recurrent episode, moderate F33.1 Active Problem Pain in joint, pelvic region and thigh, right M25.551 Active Problem Other iron deficiency anemia D50.8 Active Medications Medication Code System Code Instructions Start Date End Date Status Dosage Gabapentin [facility] [address]-85 300 MG Orally Three times a day November 05, 2015 1 capsule Results No Known Results Summary Purpose [employer] Submission
--- OUTSIDE RECORDS SUMMARY | 2017-03-27 18:46 | XMS REPORT | Continuity of Care Document ---
Author Author [facility] Organization [facility] Address [facility] [address] [place] [address] Phone Unavailable Support Name Relationship Address Phone TIKA HOLCOMB D.O. Caregiver [address] [place] [address] MELLISSA COTTER/ELIAN CREWS Caregiver [address] [place] [address] BELEN OROSCO Next Of Kin [address] [place], [place] [address] Insurance Providers Payer Name Policy Number Subscriber Name Relationship [facility] [id number] Aggie Carlin 20 Self / Same As Patient Advance Directives Directive Response Recorded Date/Time Advance Directives No 06/07/15 9:07am Living Will No 06/07/15 9:07am Health Care Proxy No 11/04/16 11:30pm Power of Optical Dispenser for Health Care No 06/07/15 9:07am Organ, Tissue, or Eye Donor No 06/07/15 9:07am Do you have a signed organ donor card? No 06/07/15 9:07am Chief Complaint and Reason for Visit Chief Complaint SKIN RASH Reason for Visit Insect bite Problems Active Problems Medical Problem Onset Date Status Ankle pain, right Unknown Acute Anxiety Unknown Acute Anxiety attack Unknown Acute Chest pain Unknown Acute Chest pain of uncertain etiology Unknown Acute Fracture of ulnar styloid Unknown Acute Fracture of ulnar styloid Unknown Acute Hematuria Unknown Acute Hematuria Unknown Acute Insect bite Unknown Acute Minor head injury with loss [...] Dose Oral Three Times A Day 15 06/05/16 Ibuprofen 600 Mg 600 Mg Oral Every 6 Hours as needed for Pain Naproxen 500 Mg 500 Mg Oral Twice Daily As Needed as needed for Pain 11/28/15 Naproxen 500 Mg 500 Mg Oral Twice Daily As Needed for Pain 07/07/16 Levothyroxine Sodium 100 Mcg 100 Mcg Oral 1-2 Times Daily 07/07/16 Gabapentin 300 Mg 300 Mg Oral Bedtime 07/07/16 Trazodone Hcl 300 Mg 150 Mg Oral Twice A Day 07/07/16 Citalopram Hydrobromide 40 Mg 40 Mg Oral 07/07/16 Hydroxyzine Hcl 25 Mg 25-50 Mg Oral Every 6 To 8 Hours As Needed as needed for Itching 11/04/16 Prednisone 20 Mg 20 Mg Oral Three Times A Day 11/04/16 Past Home Medications Medication Directions Ordered Status [...] Status Current every day smoker 07/07/2016 5:08pm Query Response Start Date Stop Date Smoking Status Current every day smoker Hospital Discharge Instructions No hospital discharge instructions. Plan of Care Discharge Date 11/05/16 12:08am Disposition 01 HOME, USP,ASSISTED LIVING Condition at Discharge Stable Instructions/Education Provided Dermatitis (GEN) Prescriptions See Medication Section Referrals MELLISSA COTTER/MARS PLUMMER - Additional Instructions/Education Take the medication as needed and make appt for follow up with your doctor in 5-6 days Functional Status Query Response Date Recorded Patient Behavior Anxious Cooperative November 04, 2016 11:02pm Allergies, Adverse Reactions, Alerts Allergen Type Severity Reaction Status Last Updated Penicillin Allergy Unknown Active 09/08/16 Immunizations Name Given Type Hx Diphtheria, Pertussis, Tetanus Vaccination Up To Date Historical Hx Influenza Vaccination No Historical Hx Pneumococcal Vaccination No Historical Hx Tetanus, Diphtheria Vaccination No Historical Hx Tetanus Toxoid Vaccination No Historical Vital Signs Acute Vital Signs Vital Response Date/Time Temperature (Fahrenheit) 98.7 degrees F (97.6 - 99.5) 11/04/2016 11:02pm Temperature Source Temporal Artery 11/04/2016 11:02pm Pulse Rate (adult) 77 bpm (60 - 90) 11/05/2016 12:08am Respiratory Rate 20 bpm (12 - 24) 11/05/2016 12:08am Blood Pressure 125/79 mm Hg 11/05/2016 12:08am O2 Sat by Pulse Oximetry 98 % (90 - 100) 11/05/2016 12:08am Oxygen Delivery Method 11/05/2016 12:08am Pain Location Body Site Modifier Right Upper Lower 09/08/2016 6:02pm Pain Description Throbbing 09/08/2016 6:02pm Height 5 ft 3 in Weight 132 lb Body Mass Index 23.0 kg/m^2 Results Laboratory Results Test Name Result Units Flags Reference Collection Date/Time Result Date/ Time Comments White Blood Count 5.7 K/uL 4.8-10.8 09/08/2016 4:40pm 09/08/2016 4: 48pm Red Blood Count 4.95 M/uL 4.20-5.40 09/08/2016 4:40pm 09/08/2016 4: 48pm Hemoglobin 12.3 gm/dL 12.0-16.0 09/08/2016 4:40pm 09/08/2016 4:48pm Hematocrit 37.8 % 37.0-47.0 09/08/2016 4:40pm 09/08/2016 4:48pm Mean Corpuscular Volume 76.3 fL L 81.0-99.0 09/08/2016 4:40pm 2016 4:48pm Mean Corpuscular Hemoglobin 24.8 pg L 27.0-31.0 09/08/2016 4:40pm 2016 4:48pm Mean Corpuscular Hemoglobin Concent 32.5 g/dL 30.0-37.0 09/08/2016 4: 40pm 09/08/2016 4:48pm Red Cell Distribution Width 20.0 % H 11.5-14.5 09/08/2016 4:40pm 2016 4:48pm Platelet Count 216 K/uL 130-400 09/08/2016 4:40pm 09/08/2016 4:48pm Mean Platelet Volume 8.9 fL 7.4-10.4 09/08/2016 4:40pm 09/08/2016 4: 48pm Neutrophils (%) (Auto) 60.8 % 42.2-75.2 09/08/2016 4:40pm 09/08/2016 4: 48pm Lymphocytes (%) (Auto) 32.3 % 20.5-51.1 09/08/2016 4:40pm 09/08/2016 4: 48pm Monocytes (%) (Auto) 4.6 % 1.7-9.3 09/08/2016 4:40pm 09/08/2016 4:48pm Eosinophils (%) (Auto) 2.1 % 0-3 09/08/2016 4:40pm 09/08/2016 4:48pm Basophils (%) (Auto) 0.3 % 0.0-1.0 09/08/2016 4:40pm 09/08/2016 4:48pm Neutrophils # (Auto) 3.5 K/uL 2.0-6.9 09/08/2016 4:40pm 09/08/2016 4: 48pm Lymphocytes # (Auto) 1.8 K/uL 1.2-3.4 09/08/2016 4:40pm 09/08/2016 4: 48pm Monocytes # (Auto) 0.3 K/uL 0.1-0.6 09/08/2016 4:40pm 09/08/2016 4: 48pm Eosinophils # (Auto) 0.1 K/uL 0.0-0.7 09/08/2016 4:40pm 09/08/2016 4: 48pm Basophils # (Auto) 0.0 K/uL 0.0-0.2 09/08/2016 4:40pm 09/08/2016 4: 48pm Random Glucose 90 mg/dL 70-110 09/08/2016 4:40pm 09/08/2016 5:08pm Blood Urea Nitrogen 10 mg/dL 7-18 09/08/2016 4:40pm 09/08/2016 5:08pm Creatinine 0.6 mg/dL 0.55-1.02 09/08/2016 4:40pm 09/08/2016 5:08pm Sodium Level 142 mEq/L 136-145 09/08/2016 4:40pm 09/08/2016 5:08pm Potassium Level 3.8 mEq/L 3.5-5.0 09/08/2016 4:40pm 09/08/2016 5:08pm Chloride Level 105 mEq/L 98-107 09/08/2016 4:40pm 09/08/2016 5:08pm Carbon Dioxide Level 26.5 mEq/L 21-32 09/08/2016 4:40pm 09/08/2016 5: 08pm Calcium Level 8.7 mg/dL L 8.8-10.5 09/08/2016 4:40pm 09/08/2016 5:08pm Total Protein 7.6 gm/dL 6.4-8.2 09/08/2016 4:40pm 09/08/2016 5:25pm Albumin 3.8 gm/dL 3.4-5.0 09/08/2016 4:40pm 09/08/2016 5:25pm Total Bilirubin 0.22 mg/dL 0.00-1.00 09/08/2016 4:40pm 09/08/2016 5: 25pm Aspartate Amino Transf (AST/SGOT) 16 U/L 15-37 09/08/2016 4:40pm 2016 5:25pm Alanine Aminotransferase (ALT/SGPT) 24 U/L 12-78 09/08/2016 4:40 5:25pm Total Alkaline Phosphatase 86 U/L 46-116 09/08/2016 4:40pm 09/08/2016 5 :25pm Creatine Kinase MB < 0.5 ng/mL 0-3.6 09/08/2016 4:09/08/2016 5: 25pm Myoglobin 17.0 NG/ML 10.5-92.5 09/08/2016 4:4009/08/2016 5:25pm Troponin I < 0.02 ng/mL 0.0-0.2 09/08/2016 4:40pm 09/08/2016 5:25pm Glomerular Filtration Rate Calc 115.4 mL/min 09/08/2016 4:40pm 2016 5:08pm Procedures Procedure Status Date Provider(s) Portable x-ray of chest Completed 09/08/16 SERA GAN MD Encounters Encounter Location Arrival/Admit Date Discharge/Depart Date Attending Provider Departed Emergency Room [place] 11/04/16 11:00pm 11/05/16 12:08am TIKA HOLCOMB D.O. Departed Emergency Room [place] 09/08/16 3:55pm 09/08/16 6:05pm SERA GAN MD Recent Diagnosis
--- OUTSIDE RECORDS SUMMARY | 2017-03-27 18:46 | XMS REPORT ---
Author Author CYNDEEMELLISSA Organization [facility] Address [address] [place] [address] Care Team Providers Care Inspector Ball Points Name Role Phone MELLISSA COTTER Unavailable PROBLEMS Type Condition ICD9-CM Code [id number] Code Onset Dates Condition Status SNOMED Code Problem Panic disorder F41.0 Active 317767290 Problem Abdominal pain, right upper quadrant R10.11 Active 319941974 Problem Postoperative hypothyroidism E89.0 Active 09704437 Problem Gastroesophageal reflux disease, esophagitis presence not specified K21.9 Active 400597444 Problem Pain in joint, pelvic region and thigh, right M25.551 Active 094100732 Problem Major depressive disorder, recurrent episode, moderate F33.1 Active 447215206 Problem Bilateral low back pain without sciatica M54.5 Active 800560438 Problem Other iron deficiency anemia D50.8 Active 97123882 ALLERGIES No Information SOCIAL HISTORY Never Assessed PLAN OF CARE VITAL SIGNS MEDICATIONS Unknown Medications RESULTS Name Result Date Reference Range TSH 2016-07-10 TSH 3.830 0.450-4.500 PROCEDURES Procedure Date Ordered Result Body Site ASSAY THYROID STIM HORMONE July 10, 2016 VENIPUNCT, ROUTINE* July 10, 2016 IMMUNIZATIONS No Known Immunizations MEDICAL (GENERAL) HISTORY [...]
--- OUTSIDE RECORDS SUMMARY | 2017-03-27 18:47 | XMS REPORT ---
Author Author ANDREEA AGOSTO Organization [facility] Address [address] [place] [address] Care Team Providers Care Senior Director Of [employer] Name Role Phone ANDREEA AGOSTO Unavailable PROBLEMS Type Condition ICD9-CM Code [id number] Code Onset Dates Condition Status SNOMED Code Problem Panic disorder F41.0 Active 672270757 Problem Abdominal pain, right upper quadrant R10.11 Active 337014779 Problem Postoperative hypothyroidism E89.0 Active 05251933 Problem Gastroesophageal reflux disease, esophagitis presence not specified K21.9 Active 712680347 Problem Pain in joint, pelvic region and thigh, right M25.551 Active 351427802 Problem Major depressive disorder, recurrent episode, moderate F33.1 Active 485885593 Problem Bilateral low back pain without sciatica M54.5 Active 391477055 Problem Other iron deficiency anemia D50.8 Active 84133155 ALLERGIES Substance Reaction Event Type Date Status Penicillin V Potassium hives Drug Allergy Jun, Active SOCIAL HISTORY Never Assessed PLAN OF CARE Activity Details Follow Up recheck 06/30/16 Reason: VITAL SIGNS Height 59 in 2016-06-26 Heart Rate 81 bpm 2016-06-26 Blood pressure systolic 142 mmHg 2016-06-26 Blood pressure diastolic 81 mmHg 2016-06-26 MEDICATIONS Unknown Medications RESULTS No Results PROCEDURES Procedure Date Ordered Result Body Site Removal fb skin/areolar tiss June 26, 2016 IMMUNIZATIONS No Known Immunizations MEDICAL (GENERAL) [...]
--- OUTSIDE RECORDS SUMMARY | 2017-03-27 18:47 | XMS REPORT ---
Author Author MELLISSA COTTER Organization [employer] Address Unknown Phone Unavailable Care Team Providers Care Director Financial Analysis Name Role Phone MELLISSA COTTER CP Unavailable [...] Start Date End Date Status Dosage Celebrex [facility] [address]-42 200 MG Orally Once a day 1 capsule Baclofen [facility] [address]-22 10 mg Orally Three times a day, please provide egyptian instructions Jan 02, 2015 1 tablet with food Results No Known Results Summary Purpose [employer] Submission
--- OUTSIDE RECORDS SUMMARY | 2017-03-27 18:47 | XMS REPORT | Continuity of Care Document ---
Author Author [facility] Organization [facility] Address [facility] [address] [place] [address] Phone Unavailable Support Name Relationship Address Phone MELLISSA COTTER/ELIAN CREWS Caregiver [address] [place] [address] SERA GAN MD Caregiver [address] [place] [phone] BELEN OROSCO Next Of Kin [address] [place] [address] Insurance Providers Payer Name Policy Number Subscriber Name Relationship [facility] [id number] Aggie Carlin 20 Self / Same As Patient Advance Directives Directive Response Recorded Date/Time Advance Directives No 06/07/15 9:07am Living Will No 06/07/15 9:07am Health Care Proxy No 09/08/16 4:00pm Power of Pharmaceutical Representative for Health Care No 06/07/15 9:07am Organ, Tissue, or Eye Donor No 06/07/15 9:07am Do you have a signed organ donor card? No 06/07/15 9:07am Chief Complaint and Reason for Visit Chief Complaint ANXIETY Reason for Visit Anxiety Anxiety attack Chest pain Problems Active Problems Medical Problem Onset Date [...] discharge instructions. Plan of Care Discharge Date 09/08/16 6:05pm Condition at Discharge Stable Instructions/Education Provided Chest Pain (ED) Anxiety (ED) Prescriptions See Medication Section Functional Status Query Response Date Recorded Kevin Coma Scale Total September 08, 2016 3:58pm Patient Behavior Cooperative September 08, 2016 3:58pm Allergies, Adverse Reactions, Alerts Allergen Type Severity Reaction Status Last Updated Penicillin Allergy Unknown Active 09/08/16 Immunizations Name Given Type Hx Diphtheria, Pertussis, Tetanus Vaccination Up To Date Historical Hx Influenza Vaccination Yes Historical Hx Pneumococcal Vaccination No Historical Hx Tetanus, Diphtheria Vaccination No Historical Hx Tetanus Toxoid Vaccination No Historical Vital Signs Acute Vital Signs Vital Response Date/Time Temperature (Fahrenheit) 97.0 degrees F (97.6 - 99.5) 09/08/2016 6:05pm Temperature Source Temporal Artery 09/08/2016 6:05pm Pulse Rate (adult) 85 bpm (60 - 90) 09/08/2016 6:05pm Respiratory Rate 20 bpm (12 - 24) 09/08/2016 6:05pm Blood Pressure 107/61 mm Hg 09/08/2016 6:05pm O2 Sat by Pulse Oximetry 99 % (90 - 100) 09/08/2016 6:05pm Oxygen Delivery Method 09/08/2016 6:05pm Pain Location Body Site Modifier Right Upper Lower 09/08/2016 6:02pm Pain Description Throbbing 09/08/2016 6:02pm Height 5 ft 3 in Weight 127 lb Body Mass Index 22.0 kg/m^2 Results Pending Laboratory Results Test Name Collection Date/Time Procedures Procedure Status Date Provider(s) US gallbladder Active 07/02/16 MELLISSA COTTER/MARS PLUMMER Digital screening mammography of both breasts Active 07/02/16 MELLISSA COTTER/ MARS PLUMMER X-ray of right ankle, three or more views Active 07/07/16 SANJEEV STRONG MD Portable x-ray of chest Completed 09/08/16 SERA GAN MD Encounters Encounter Location Arrival/Admit Date Discharge/Depart Date Attending Provider Departed Emergency Room [place] 09/08/16 3:55pm 09/08/16 6:05pm SERA GAN MD Departed Emergency Room [place] 07/07/16 4:05pm 07/07/16 5:30pm SANJEEV STRONG MD Registered Clinic [place] 07/02/16 8:49am MELLISSA COTTER/ELIAN CREWS Recent Diagnosis
--- OUTSIDE RECORDS SUMMARY | 2017-03-27 18:47 | XMS REPORT ---
Author Author ANDREEA AGOSTO Organization [facility] Address [address] [place] [address] Care Team Providers Care Personal Coach Name Role Phone ANDREEA AGOSTO Unavailable PROBLEMS Type Condition ICD9-CM Code IIN25-OP Code Onset Dates Condition Status SNOMED Code Problem Panic disorder F41.0 Active 927835307 Problem Abdominal pain, right upper quadrant R10.11 Active 424006260 Problem Postoperative hypothyroidism E89.0 Active 03279595 Problem Gastroesophageal reflux disease, esophagitis presence not specified K21.9 Active 855504324 Problem Pain in joint, pelvic region and thigh, right M25.551 Active 598315364 Problem Major depressive disorder, recurrent episode, moderate F33.1 Active 550987960 Problem Bilateral low back pain without sciatica M54.5 Active 762947315 Problem Other iron deficiency anemia D50.8 Active 17873978 ALLERGIES No Information SOCIAL HISTORY Never Assessed [...]
--- OUTSIDE RECORDS SUMMARY | 2017-03-27 18:47 | XMS REPORT | Continuity of Care Document ---
Author Author [facility] Organization [facility] Address [facility] [address] [place] [address] Phone Unavailable Support Name Relationship Address Phone TIKA RAMOS DO Caregiver [address] [place] [address] BELEN ATKINS Next Of Kin [address] [place] [address] Insurance Providers Payer Name Policy Number Subscriber Name Relationship Avelino Ramos [id number] CarlinAggie 18 Self / Same As Patient Advance Directives Directive Response Recorded Date/Time Advance Directives No 09/29/15 10:11am Living Will No 09/29/15 10:11am Health Care Proxy No 11/28/15 12:57pm Power of Associate Medical Director for Health Care No 09/29/15 10:11am Organ, Tissue, or Eye Donor No 09/29/15 10:10am Do you have a signed organ donor card? No 09/29/15 10:10am Chief Complaint and Reason for Visit Chief Complaint WRIST PAIN Reason for Visit [id number] Problems Active Problems Medical Problem Onset Date Status Ankle pain, right Unknown Acute Fracture of ulnar styloid Unknown [...] fracture Unknown Acute Radius fracture Unknown Acute Sacral fracture, closed Unknown Acute Sacral fracture, closed Unknown Acute Wrist pain, right Unknown Acute Medications Current Home Medications Medication Dose Units Route Directions Days/Qty Instructions Start Date Fluoxetine Hcl 10 Mg Unknown Dose Oral Daily 30 09/29/15 Baclofen 10 Mg Unknown Dose Oral Three Times A Day 15 09/29/15 Potassium Chloride 10 Meq Unknown Dose Oral Twice A Day 60 09/29/15 Indomethacin 50 Mg 50 Mg Oral Three Times A Day 30 10/10/15 Enoxaparin Sodium 60 Mg/0.6 Ml 40 Mg Sub-Q Daily 10/20/15 Ibuprofen 600 Mg 600 Mg Oral Every 6 Hours as needed for Pain Venlafaxine Hcl 150 Mg 150 Mg Oral Daily 30 10/20/15 Oxycodone Hcl/Acetaminophen* 1 Tab 1 Ea Oral Every 4-6 Hrs As Needed Pain 30 10/20/15 Hydroxyzine Hcl 25 Mg 25 Mg Oral Daily At Bedtime as needed for Insomnia 10 10/20/15 Naproxen 500 Mg 500 Mg Oral Twice Daily As Needed as needed for Pain 10 11/28/15 Past Home Medications Medication Directions Ordered Status Ferrous Gluconate 236 Mg Tablet, Unknown Dose Oral 09/29/15 Discontinued Social History Social History Problem Response Recorded Date/Time Smoking Status Current every day smoker 09/29/2015 10:41am Tobacco Use Cigarettes 09/29/2015 10:41am Sexual History Heterosexual 09/29/2015 10:41am Query Response Start Date Stop Date Smoking Status Current every day smoker Hospital Discharge Instructions No hospital discharge instructions. Plan of Care Discharge Date 11/28/15 4:43pm Condition at Discharge Stable Instructions/Education Provided Wrist Sprain (ED) Prescriptions See Medication Section Referrals Your orthopedic surgeon - 1 Week Functional Status Query Response Date Recorded [place] Coma Scale Total 15 November 28, 2015 3:29pm Patient Behavior Cooperative Appropriate November 28, 2015 3:29pm Allergies, Adverse Reactions, Alerts Allergen Type Severity Reaction Status Last Updated PENICILLIN Allergy Unknown Active 09/29/15 Immunizations Name Given Type Hx Diphtheria, Pertussis, Tetanus Vaccination Up To Date Historical Hx Influenza Vaccination Y Fall 2014 Historical Hx Pneumococcal Vaccination No Historical Vital Signs Acute Vital Signs Vital Response Date/Time Temperature (Fahrenheit) 98 degrees F (97.6 - 99.5) 11/28/2015 4:31pm Temperature Source Temporal Artery 11/28/2015 4:31pm Pulse Rate (adult) 73 bpm (60 - 90) 11/28/2015 4:31pm Respiratory Rate 18 bpm (12 - 24) 11/28/2015 4:31pm Blood Pressure 104/82 mm Hg 11/28/2015 4:31pm O2 Sat by Pulse Oximetry 99 % (90 - 100) 11/28/2015 4:31pm Oxygen Delivery Method 11/28/2015 4:31pm Pain Location Body Site Modifier 10/21/2015 12:03am Height 5 ft 3 in Weight 121 lb Body Mass Index 21.0 kg/m^2 Results Laboratory Results Test Name Result Units Flags Reference Collection Date/Time Result Date/ Time Comments White Blood Count 8.9 K/uL 4.8-10.8 09/29/2015 9:50am 09/29/2015 10: 01am Red Blood Count 4.57 M/uL 4.20-5.40 09/29/2015 9:50am 09/29/2015 10: 01am Hemoglobin 10.6 gm/dL L 12.0-16.0 09/29/2015 9:50am 09/29/2015 10:01am Hematocrit 33.1 % L 37.0-47.0 09/29/2015 9:50am 09/29/2015 10:01am Mean Corpuscular Volume 72.3 fL L 81.0-99.0 09/29/2015 9:50am 2015 10:01am Mean Corpuscular Hemoglobin 23.1 pg L 27.0-31.0 09/29/2015 9:50am 2015 10:01am Mean Corpuscular Hemoglobin Concent 32.2 g/dL 30.0-37.0 09/29/2015 9: 50am 09/29/2015 10:01am Red Cell Distribution Width 19.5 % H 11.5-14.5 09/29/2015 9:50am 2015 10:01am Platelet Count 211 K/uL 130-400 09/29/2015 9:50am 09/29/2015 10:01am Mean Platelet Volume 9.1 fL 7.4-10.4 09/29/2015 9:50am 09/29/2015 10: 01am Neutrophils (%) (Auto) 81.6 % H 42.2-75.2 09/29/2015 9:50am 09/29/2015 10:01am Lymphocytes (%) (Auto) 14.4 % L 20.5-51.1 09/29/2015 9:50am 09/29/2015 10:01am Monocytes (%) (Auto) 2.8 % 1.7-9.3 09/29/2015 9:50am 09/29/2015 10: 01am Eosinophils (%) (Auto) 1.1 % 0-3 09/29/2015 9:5009/29/2015 10:01am Basophils (%) (Auto) 0.2 % 0.0-1.0 09/29/2015 9:5009/29/2015 10: 01am Neutrophils # (Auto) 7.2 K/uL H 2.0-6.9 09/29/2015 9:5009/29/2015 10: 01am Lymphocytes # (Auto) 1.3 K/uL 1.2-3.4 09/29/2015 9:5009/29/2015 10: 01am Monocytes # (Auto) 0.3 K/uL 0.1-0.6 09/29/2015 9:5009/29/2015 10: 01am Eosinophils # (Auto) 0.1 K/uL 0.0-0.7 09/29/2015 9:5009/29/2015 10: 01am Basophils # (Auto) 0.0 K/uL 0.0-0.2 09/29/2015 9:5009/29/2015 10: 01am Prothrombin Time 10.2 SECONDS 9.10-11.20 09/29/2015 9:5009/29/2015 10:28am Prothromb Time International Ratio 1.01 0.9-1.1 09/29/2015 9:5008/2015 10:28am THERAPEUTIC RANGE 1.0 - 3.0 PLEASE NOTE REFERENCE RANGE Random Glucose 91 mg/dL 70-110 09/29/2015 9:5009/29/2015 10:09am Blood Urea Nitrogen 14 mg/dL 7-18 09/29/2015 9:5009/29/2015 10:09am Creatinine 0.5 mg/dL L 0.55-1.02 09/29/2015 9:5009/29/2015 10:09am Sodium Level 141 mEq/L 136-145 09/29/2015 9:5009/29/2015 10:09am Potassium Level 3.8 mEq/L 3.5-5.0 09/29/2015 9:5009/29/2015 10:09am Chloride Level 108 mEq/L H 98-107 09/29/2015 9:5009/29/2015 10:09am Carbon Dioxide Level 24.2 mEq/L 21-32 09/29/2015 9:50am 09/29/2015 10: 09am Calcium Level 7.9 mg/dL L 8.8-10.5 09/29/2015 9:50am 09/29/2015 10:09am Total Protein 6.8 gm/dL 6.4-8.2 09/29/2015 9:50am 09/29/2015 10:09am Albumin 3.3 gm/dL L 3.4-5.0 09/29/2015 9:50am 09/29/2015 10:09am Total Bilirubin 0.35 mg/dL 0.00-1.00 09/29/2015 9:50am 09/29/2015 10: 09am Aspartate Amino Transf (AST/SGOT) 30 U/L 15-37 09/29/2015 9:50am 2015 10:09am Alanine Aminotransferase (ALT/SGPT) 32 U/L 12-78 09/29/2015 9:50am 08/2015 10:09am Total Alkaline Phosphatase 73 U/L 46-116 09/29/2015 9:50am 09/29/2015 10:09am Urine Color YELLOW YELLOW 09/29/2015 12:00pm 09/29/2015 12:18pm Urine Appearance CLEAR CLEAR 09/29/2015 12:00pm 09/29/2015 12:18pm Urine Glucose (UA) NEGATIVE mg/dL NEGATIVE 09/29/2015 12:00pm 2015 12:18pm Urine Bilirubin NEGATIVE NEGATIVE 09/29/2015 12:00pm 09/29/2015 12: 18pm Urine Ketones NEGATIVE mg/dL NEGATIVE 09/29/2015 12:00pm 09/29/2015 12: 18pm Urine Specific [place] 1.015 1.010-1.025 09/29/2015 12:00pm 2015 12:18pm Urine Occult Blood NEGATIVE NEGATIVE 09/29/2015 12:00pm 09/29/2015 12 :18pm Urine pH 7.0 5.0-8.0 09/29/2015 12:00pm 09/29/2015 12:18pm Urine Protein NEGATIVE mg/dL NEGATIVE 09/29/2015 12:00pm 09/29/2015 12: 18pm Urine Urobilinogen 0.2 mg/dL E.U./dL 0.2-1.0 09/29/2015 12:00pm 2015 12:18pm Urine Nitrate NEGATIVE NEGATIVE 09/29/2015 12:00pm 09/29/2015 12: 18pm Urine Leukocyte Esterase NEGATIVE NEGATIVE 09/29/2015 12:00pm 2015 12:18pm Urine RBC NEGATIVE /hpf 0 09/29/2015 12:00pm 09/29/2015 12:31pm Urine WBC 1-2 /hpf 0-4 09/29/2015 12:00pm 09/29/2015 12:31pm Urine Squamous Epithelial Cells 0-1 /hpf 0-1 09/29/2015 12:00pm 2015 12:31pm Urine Bacteria NEGATIVE NEGATIVE 09/29/2015 12:00pm 09/29/2015 12: 31pm Human Chorionic Gonadotropin, Qual NEGATIVE NEG 09/29/2015 9:50am 08/2015 10:10am Glomerular Filtration Rate Calc 143.1 mL/min H 09/29/2015 9:50am 09/28 10:09am Microbiology Results Procedure Source Result Collection Date/Time Result Date/Time Urine Culture Urine,Clean Catch NO GROWTH AFTER 48 HOURS 09/29/2015 11:48am 10/01/2015 12:16pm Procedures Procedure Status Date Provider(s) Computed tomography of head without contrast Active 09/29/15 VILLAESTEPHANIA DO Computed tomography of cervical spine without contrast Active 09/29/15 VILLA,ESTEPHANIA DO Computed tomography of thoracic spine without contrast Active 09/29/15 VILLA,ESTEPHANIA DO Computed tomography of lumbar spine without contrast Active 09/29/15 VILLA ,ESTEPHANIA DO Computed tomography of abdomen and pelvis with contrast Active 09/29/15 VILLAESTEPHANIA DO X-ray of right shoulder, two or more views Active 09/29/15 VILLA,ESTEPHANIA DO Wrist Rt. 4 Views(3OR More) Active 09/29/15 VILLAESTEPHANIA DO X-ray of pelvis, one or two views including anteroposterior view Active 09/28 VILLAESTEPHANIA DO X-ray of chest, single view Active 09/29/15 VILLAESTEPHANIA DO X-ray of right elbow, two views Active 09/29/15 VILLA,ESTEPHANIA DO Computed tomography of right upper extremity without contrast Active VILLAESTEPHANIA DO X-ray of right ankle, three or more views Active 10/10/15 TIKA HOLCOMB D.O. Wrist Rt. 4 Views(3OR More) Completed 11/28/15 TIKA RAMOS DO Encounters Encounter Location Arrival/Admit Date Discharge/Depart Date Attending Provider Departed Emergency [facility] [place] 11/28/15 12:59pm 11/28/15 4:43pm TIKA RAMOS DO Departed Emergency Room [place] 10/20/15 11:04pm 10/21/15 12:05am CRISTY CLAROS MD Departed Emergency Room [place] 10/10/15 5:11am 10/10/15 6:00am TIKA HOLCOMB D.O. Departed Emergency Room [place] 09/29/15 9:15am 09/29/15 1:36pm ESTEPHANIA VILLA DO Recent Diagnosis
--- OUTSIDE RECORDS SUMMARY | 2017-03-27 18:47 | XMS REPORT ---
Author Author ANDREY SUMMERS Organization [employer] Address Unknown Phone Unavailable Care Team Providers Care Sales And Service Technician Name Role Phone ANDREY SUMMERS CP Unavailable Allergies, Adverse Reactions, Alerts Substance Reaction Event Type Penicillin V Potassium hives Drug Allergy Problems Problem Type Condition ICD-9 Code Onset Dates Condition Status Problem Hip, thigh, leg, and ankle, insect bite, nonvenomous, without mention of infection 916.4 Active Problem Pain in joint, pelvic region and thigh 719.45 Active Problem Cervicalgia 723.1 Active Problem General counseling for initiation of other contraceptive measures V25.02 Active Assessment Back pain 724.5 Active Problem Disruption of external operation (surgical) wound 998.32 Active Assessment Urinary frequency 788.41 Active Assessment Anemia 285.9 Active Problem Other general counseling and advice for contraceptive management V25.09 Active Problem Depressive disorder, not elsewhere classified 311 Active Problem Dermatophytosis of the body 110.5 Active Problem Lumbago 724.2 Active Problem Anxiety state, unspecified 300.00 Active Problem Abdominal pain, right upper quadrant 789.01 Active Problem Major depressive disorder, recurrent episode, moderate 296.32 Active Assessment Depression 311 Active Problem Unspecified anemia 285.9 Active Problem Other and unspecified ovarian cyst 620.2 Active Problem Urinary frequency 788.41 Active Problem Need for prophylactic vaccination and inoculation, Influenza V04.81 Active Problem Unspecified concussion 850.9 Active Problem Urinary tract infection, site not specified 599.0 Active Problem Acute serous otitis media 381.01 Active Medications Medication Code System Code Instructions Start Date End Date Status Dosage Celebrex [facility] [address]-13 200 MG Orally Once a day 1 capsule Baclofen [facility] [address]-32 10 MG Orally Three times a day, please provide tuvaluan instructions Jan 02, 2015 1/2 tablet with food or milk Fluoxetine HCl [facility] [address]-70 20 MG Orally once daily, please provide tuvaluan instructions October 04, 2014 2 capsule in the morning Gabapentin [facility] [address]-54 100 MG Orally Three times a day, please provide tuvaluan instructions October 04, 2014 1 capsule Ferrous Sulfate [facility] [address]-37 325 (65 Fe) MG Orally Twice a day, please provide tuvaluan instructions October 04, 2014 1 tablet Naproxen [facility] [address]-05 500 MG Orally Twice a day with food, please provide tuvaluan instructions Jun 07, 2014 take 1 tablet Procedures Procedure Coding System Code Date COMPLETE CBC W/AUTO DIFF WBC CPT-4 17386 Jan 02, 2015 COMPREHEN METABOLIC PANEL CPT-4 01673 Jan 02, 2015 URINALYSIS, AUTO, W/O SCOPE CPT-4 00764 Jan 02, 2015 Office Visit, Est Pt., Level 4 CPT-4 31876 Jan 02, 2015 VENIPUNCT, ROUTINE* CPT-4 85018 Jan 02, 2015 Vital Signs Date/Time: Jan 02, 2015 Temperature 98.4 F Weight 119.7 lbs Height 59 in BMI 24.17 Index Blood Pressure Diastolic 68 mmHg Blood Pressure Systolic 118 mmHg Cardiac Monitoring Heart Rate 75 bpm Results Name Result Date Reference Range Unit Abnormality Flag UA LONG DIP (IN HOUSE) Summary Purpose [employer] Submission
--- OUTSIDE RECORDS SUMMARY | 2017-03-27 18:47 | XMS REPORT ---
Author Author ELIJAH ARMAS Organization [employer] Address Unknown Phone Unavailable Care Team Providers Care Flight Control Specialist Name Role Phone ELIJAH ARMAS CP Unavailable Allergies, Adverse Reactions, Alerts Substance Reaction Event Type Penicillin V Potassium hives Drug Allergy Problems Problem Type Condition Code Onset Dates Condition Status Problem Panic disorder F41.0 Active Assessment Encounter for dental examination Z01.20 Active Problem Gastroesophageal reflux disease, esophagitis presence [...] Instructions Start Date End Date Status Dosage Clindamycin HCl [facility] [address]-54 150 MG Orally every 8 hrs 2 capsules Procedures Procedure Coding System Code Date INTRAORL-PERIAPICAL 1 FILM 48376 CPT-4 D0220 Jan 01, 2016 LTD ORAL EVALUATION - PROBLEM FOCUS CPT-4 D0140 Jan 01, 2016 Vital Signs Date/Time: Jan 01, 2016 Blood Pressure Systolic 124 mmHg Cardiac Monitoring Heart Rate 71 bpm Height 59 in Blood Pressure Diastolic 79 mmHg Results No Known Results Summary Purpose [employer] Submission
--- OUTSIDE RECORDS SUMMARY | 2017-03-27 18:47 | XMS REPORT ---
Author Author MELLISSA COTTER Organization [facility] Address [address] [place] [address] Care Team Providers Care Water Safety Teacher Name Role Phone MELLISSA COTTER Unavailable PROBLEMS Type Condition ICD9-CM Code JAR05-MN Code Onset Dates Condition Status SNOMED Code Problem Panic disorder F41.0 Active 663012080 Problem Abdominal pain, right upper quadrant R10.11 Active 080307743 Problem Postoperative hypothyroidism E89.0 Active 49305570 Problem Gastroesophageal reflux disease, esophagitis presence not specified K21.9 Active 919719361 Problem Pain in joint, pelvic region and thigh, right M25.551 Active 338560755 Problem Major depressive disorder, recurrent episode, moderate F33.1 Active 808843735 Problem Bilateral low back pain without sciatica M54.5 Active 147267438 Problem Other iron deficiency anemia D50.8 Active 16594512 ALLERGIES Unknown Allergies SOCIAL HISTORY No smoking Hx information available PLAN OF CARE VITAL SIGNS MEDICATIONS Unknown Medications RESULTS No Results PROCEDURES No Known procedures IMMUNIZATIONS No Known Immunizations
--- OUTSIDE RECORDS SUMMARY | 2017-03-27 18:47 | XMS REPORT ---
Author Author MELLISSA COTTER Organization [facility] Address [address] [place] [address] Care Team Providers Care Manager Inpatient Name Role Phone MELLISSA COTTER Unavailable PROBLEMS Type Condition ICD9-CM Code ZRY47-YV Code Onset Dates Condition Status SNOMED Code Problem Major depressive disorder, recurrent episode, moderate F33.1 Active 792425648 Problem Panic disorder F41.0 Active 244102309 Problem Postoperative hypothyroidism E89.0 Active 07483875 Problem Gastroesophageal reflux disease, esophagitis presence not specified K21.9 Active 067982444 Problem Other iron deficiency anemia D50.8 Active 82250770 Problem Abdominal pain, right upper quadrant R10.11 Active 240699782 Problem Bilateral low back pain without sciatica M54.5 Active 010429492 Problem Pain in joint, pelvic region and thigh, right M25.551 Active 784321455 ALLERGIES Unknown Allergies SOCIAL HISTORY No smoking Hx information available PLAN OF CARE VITAL SIGNS MEDICATIONS Medication Instructions Dosage Frequency Start Date End Date Duration Status Celebrex 200 MG Orally Once a day 1 capsule 24h Active RESULTS No Results PROCEDURES No Known procedures IMMUNIZATIONS No Known Immunizations
--- OUTSIDE RECORDS SUMMARY | 2017-03-27 18:47 | XMS REPORT ---
Author Author ANDREEA AGOSTO Organization [facility] Address [address] [place] [address] Care Team Providers Care Account Underwriter Name Role Phone ANDREEA AGOSTO Unavailable PROBLEMS Type Condition ICD9-CM Code WUX74-VE Code Onset Dates Condition Status SNOMED Code Problem Panic disorder F41.0 Active 225796467 Problem Abdominal pain, right upper quadrant R10.11 Active 411141194 Problem Postoperative hypothyroidism E89.0 Active 77898638 Problem Gastroesophageal reflux disease, esophagitis presence not specified K21.9 Active 204394405 Problem Pain in joint, pelvic region and thigh, right M25.551 Active 641434008 Problem Major depressive disorder, recurrent episode, moderate F33.1 Active 281463482 Problem Bilateral low back pain without sciatica M54.5 Active 251375985 Problem Other iron deficiency anemia D50.8 Active 26221751 ALLERGIES No Information SOCIAL HISTORY Never Assessed [...]
--- OUTSIDE RECORDS SUMMARY | 2017-03-27 18:47 | XMS REPORT ---
Author Author MELLISSA COTTER Organization [facility] Address [address] [place] [address] Care Team Providers Care Skin Lifter Bacon Name Role Phone MELLISSA COTTER Unavailable PROBLEMS Type Condition ICD9-CM Code IKO71-BI Code Onset Dates Condition Status SNOMED Code Problem Thyroid cancer C73 Active 697933621 Problem Major depressive disorder, recurrent episode, moderate F33.1 Active 406356737 Problem Panic disorder F41.0 Active 019854477 Problem Thyroid nodule E04.1 Active 752141368 Problem Gastroesophageal reflux disease, esophagitis presence not specified K21.9 Active 975130061 Problem Other iron deficiency anemia D50.8 Active 20632327 Problem Abdominal pain, right upper quadrant R10.11 Active 069091885 Problem Bilateral low back pain without sciatica M54.5 Active 078651729 Problem Pain in joint, pelvic region and thigh, right M25.551 Active 883612168 ALLERGIES Unknown Allergies SOCIAL HISTORY No smoking Hx information available PLAN OF CARE VITAL SIGNS MEDICATIONS Unknown Medications RESULTS Name Result Date Reference Range Ultrasound : Guide for Biopsy PROCEDURES No Known procedures IMMUNIZATIONS No Known Immunizations
--- OUTSIDE RECORDS SUMMARY | 2017-03-27 18:48 | XMS REPORT ---
Author Author MELLISSA COTTER Organization [facility] Address [address] [place] [address] Care Team Providers Care Gas Dispenser Name Role Phone MELLISSA COTTER Unavailable PROBLEMS Type Condition ICD9-CM Code KZY52-DE Code Onset Dates Condition Status SNOMED Code Problem Thyroid cancer C73 Active 286843000 Problem Major depressive disorder, recurrent episode, moderate F33.1 Active 616777557 Problem Panic disorder F41.0 Active 950449430 Assessment Encounter for immunization Z23 Dec, Active 477453497 Assessment Allergic rhinitis, unspecified allergic rhinitis trigger, unspecified rhinitis seasonality J30.9 Dec, Active 32284731 Assessment Generalized abdominal pain R10.84 Dec, Active 331276911 Problem Thyroid nodule E04.1 Active 593645570 Problem Gastroesophageal reflux disease, esophagitis presence not specified K21.9 Active 701407541 Problem Other iron deficiency anemia D50.8 Active 18420582 Problem Abdominal pain, right upper quadrant R10.11 Active 364523219 Problem Bilateral low back pain without sciatica M54.5 Active 450462944 Problem Pain in joint, pelvic region and thigh, right M25.551 Active 976872013 ALLERGIES Substance Reaction Event Type Date Status Penicillin V Potassium hives Drug Allergy Dec, Active SOCIAL HISTORY No smoking Hx information available PLAN OF CARE VITAL SIGNS Height 59 in 2016-01-14 Weight 120 lbs 2016-01-14 Heart Rate 79 bpm 2016-01-14 Respiratory Rate 16 2016-01-14 Oximetry 99 % 2016-01-14 BMI 24.23 kg/m2 2016-01-14 Blood pressure systolic 110 mmHg 2016-01-14 Blood pressure diastolic 64 mmHg 2016-01-14 MEDICATIONS Medication Instructions Dosage Frequency Start Date End Date Duration Status Ferrous Sulfate 325 (65 Fe) MG Orally Twice a day, please provide turkish instructions 1 tablet Sep, Active Baclofen 10 MG Orally Three times a day, please provide turkish instructions 1 tablet with food Dec, Active Celebrex 200 MG Orally Once a day 1 capsule 24h Active Clindamycin HCl 150 MG Orally every 8 hrs 2 capsules 8h 10 days Active Bentyl 20 MG Orally Four times a day 1 tablet 6h 20 Dec, 2015 Jan, 30 day(s) Active Lidocaine 5 % Externally Once a day 1 patch to intact skin remove after 12 hours 24h 28 Jul, 2015 Active Fluoxetine HCl 40 MG Orally once a day 1 capsule in the morning 24h Sep Active Fluoxetine HCl 20 MG Orally Once a day 1 capsule in the morning 24h Nov Active Potassium Chloride 10 MEQ Orally Once a day 10 mEq by Oral route 1 time per day 24h Dec, Active Gabapentin 300 MG Orally Three times a day 1 capsule 8h Oct, Active RESULTS No Results PROCEDURES Procedure Date Ordered Related Diagnosis Body Site MEASURE BLOOD OXYGEN LEVEL Jan 14, 2016 FLUARIX QUAD P-FREE 3 AND UP .50 2015Jan 14, 2016 Office Visit, Est Pt., Level 3 Jan 14, 2016 SINGLE IMMUNIZATION ADMIN Jan 14, 2016 IMMUNIZATIONS Vaccine Route Administration Date Status FLUARIX QUAD P-FREE 3 AND UP .50 2015 IM Intramuscular Jan 14, 2016 Administered
--- OUTSIDE RECORDS SUMMARY | 2017-03-27 18:48 | XMS REPORT ---
Author Author MELLISSA COTTER Organization [facility] Address [address] [place] [address] Care Team Providers Care Mortgage Loan Interviewer Name Role Phone MELLISSA COTTER Unavailable PROBLEMS Type Condition ICD9-CM Code CUB09-DY Code Onset Dates Condition Status SNOMED Code Problem Major depressive disorder, recurrent episode, moderate F33.1 Active 136575795 Problem Panic disorder F41.0 Active 315990287 Problem Postoperative hypothyroidism E89.0 Active 00646316 Problem Gastroesophageal reflux disease, esophagitis presence not specified K21.9 Active 469259615 Problem Other iron deficiency anemia D50.8 Active 51945584 Problem Abdominal pain, right upper quadrant R10.11 Active 456780310 Problem Bilateral low back pain without sciatica M54.5 Active 922463641 Problem Pain in joint, pelvic region and thigh, right M25.551 Active 622079888 ALLERGIES Substance Reaction Event Type Date Status Penicillin V Potassium hives Drug Allergy Mar, Active SOCIAL HISTORY No smoking Hx information available PLAN OF CARE Activity Details Follow Up prn Reason:acute VITAL SIGNS Height 59 in 2016-04-09 Weight 124 lbs 2016-04-09 Temperature 98.9 degrees Fahrenheit 2016-04-09 Heart Rate 78 bpm 2016-04-09 Respiratory Rate 16 2016-04-09 BMI 25.04 kg/m2 2016-04-09 Blood pressure systolic 110 mmHg 2016-04-09 Blood pressure diastolic 68 mmHg 2016-04-09 MEDICATIONS Medication Instructions Dosage Frequency Start Date End Date Duration Status Celexa 20 MG Orally Once a day 1 tablet 24h Active Baclofen 10 mg Orally Three times a day, please provide east timorese instructions 1 tablet with food 30 Active Gabapentin 300 MG Orally Three times a day 1 capsule 8h Oct, Active Trazodone HCl 50 MG Orally Once a day 1 tablet at bedtime as needed 24h Active Tramadol HCl 50 mg Orally 2 times a day PRN 1 tablet as needed Active PreviDent 5000 Enamel Protect 1.1-5 % as directed Feb, Active Potassium Chloride 10 MEQ Orally Once a day 10 mEq by Oral route 1 time per day 24h 11 Dec, 2013 Active RESULTS No Results PROCEDURES Procedure Date Ordered Related Diagnosis Body Site Office Visit, Est Pt., Level 3 Apr 09, 2016 IMMUNIZATIONS No Known Immunizations
--- OUTSIDE RECORDS SUMMARY | 2017-03-27 18:48 | XMS REPORT ---
Author Author MELLISSA COTTER Organization [employer] Address Unknown Phone Unavailable Care Team Providers Care Ferry Hand Name Role Phone MELLISSA COTTER CP Unavailable Allergies, Adverse Reactions, Alerts Substance Reaction Event Type Penicillin V Potassium hives Drug Allergy Problems Problem Type Condition Code Onset Dates Condition Status Assessment Panic disorder F41.0 Active Assessment Gastroesophageal reflux disease, esophagitis presence not specified K21.9 Active Assessment Pain in joint, pelvic region and thigh, right M25.551 Active Problem Bilateral low back pain without sciatica M54.5 Active Problem Pain in joint, pelvic region and thigh, right M25.551 Active Problem Gastroesophageal reflux disease, esophagitis presence not specified K21.9 Active Problem Major depressive disorder, recurrent episode, moderate F33.1 Active Problem Panic disorder F41.0 Active Problem Other iron deficiency anemia D50.8 Active Problem Abdominal pain, right upper quadrant R10.11 Active Medications Medication Code System Code Instructions Start Date End Date Status Dosage Potassium Chloride [facility] [address]-81 10 MEQ Orally Once a day Jan 04, 2014 10 mEq by Oral route 1 time per day Ferrous Sulfate [facility] [address]-17 325 (65 Fe) MG Orally Twice a day, please provide romanian instructions October 04, 2014 1 tablet Omeprazole [facility] [address]-01 20 MG Orally Once a day May 30, 2015 1 capsule Baclofen [facility] [address]-60 10 MG Orally Three times a day, please provide romanian instructions Jan 02, 2015 1/2 tablet with food or milk Celebrex [facility] [address]-14 200 MG Orally Once a day 1 capsule Effexor XR [facility] [address]-03 150 MG Orally Once a day Apr 02, 2015 1 cap Effexor XR [facility] [address]-54 75 MG Orally Once a day Apr 02, 2015 1 cap Fluoxetine HCl [facility] [address]-65 40 MG Orally once daily, please provide romanian instructions October 04, 2014 1 capsule in the morning Gabapentin [facility] [address]-74 100 MG Orally Three times a day, please provide romanian instructions October 04, 2014 1 capsule Procedures Procedure Coding System Code Date Office Visit, Est Pt., Level 4 CPT-4 71444 May 30, 2015 Vital Signs Date/Time: May 30, 2015 Temperature 98.2 F Weight 131 lbs Height 59 in BMI 26.46 Index Blood Pressure Diastolic 68 mmHg Blood Pressure Systolic 110 mmHg Cardiac Monitoring Heart Rate 86 bpm Results No Known Results Summary Purpose [employer]Works Submission
--- OUTSIDE RECORDS SUMMARY | 2017-03-27 18:48 | XMS REPORT ---
Author Author ALLY Navarrete [facility] Address Unknown Care Team Providers Care Stack Supervisor Name Role Phone ALLY Navarrete Unavailable PROBLEMS Type Condition ICD9-CM Code [id number] Code Onset Dates Condition Status SNOMED Code Problem Panic disorder F41.0 Active 024144564 Problem Abdominal pain, right upper quadrant R10.11 Active 413258202 Problem Postoperative hypothyroidism E89.0 Active 55961164 Problem Gastroesophageal reflux disease, esophagitis presence not specified K21.9 Active 170508073 Problem Pain in joint, pelvic region and thigh, right M25.551 Active 917611116 Problem Major depressive disorder, recurrent episode, moderate F33.1 Active 871430187 Problem Bilateral low back pain without sciatica M54.5 Active 113157188 Problem Other iron deficiency anemia D50.8 Active 91930126 ALLERGIES Substance Reaction Event Type Date Status Penicillin V Potassium hives Drug Allergy May, Active SOCIAL HISTORY Never Assessed PLAN OF CARE Activity Details Follow Up 3 Weeks Reason:Partial seat VITAL SIGNS MEDICATIONS Medication Instructions Dosage Frequency Start Date End Date Duration Status PreviDent 5000 Enamel Protect 1.1-5 % as directed Feb, Active Tramadol HCl 50 mg Orally 2 times a day PRN 1 tablet as needed Active Potassium Chloride 10 MEQ Orally Once a day 10 mEq by Oral route 1 time per day 24h Dec, Active Celexa 20 MG Orally Once a day 1 tablet 24h Active Trazodone HCl 50 MG Orally Once a day 1 tablet at bedtime as needed 24h Active Gabapentin 300 MG Orally Three times a day 1 capsule 8h Oct, Active Baclofen 10 mg Orally Three times a day, please provide comoran instructions 1 tablet with food 30 Active RESULTS No Results PROCEDURES Procedure Date Ordered Result Body Site Dental no charge Jun 04, 2016 IMMUNIZATIONS No Known Immunizations MEDICAL (GENERAL) [...]
--- OUTSIDE RECORDS SUMMARY | 2017-03-27 18:48 | XMS REPORT ---
Author Author MELLSISA COTTER Organization [employer] Address Unknown Phone Unavailable Care Team Providers Care Electric Organ Inspector And Repairer Name Role Phone MELLISSA COTTER CP Unavailable Allergies, Adverse Reactions, Alerts Substance Reaction Event Type Penicillin V Potassium hives Drug Allergy Problems Problem Type Condition Code Onset Dates Condition Status Assessment Thyroid nodule E04.1 Active Problem Panic disorder F41.0 Active Assessment Pain in joint, pelvic region [...] Instructions Start Date End Date Status Dosage Ferrous Sulfate [facility] [address]-93 325 (65 Fe) MG Orally Twice a day, please provide liberian instructions October 04, 2014 1 tablet Fluoxetine HCl [facility] [address]-22 40 MG Orally once a day October 04, 2014 1 capsule in the morning Potassium Chloride [facility] [address]-87 10 MEQ Orally Once a day Jan 04, 2014 10 mEq by Oral route 1 time per day Gabapentin [facility] [address]-63 300 MG Orally Three times a day November 05, 2015 1 capsule Celebrex [facility] [address]-60 200 MG Orally Once a day 1 capsule Baclofen [facility] [address]-07 10 MG Orally Three times a day, please provide liberian instructions Jan 02, 2015 1/2 tablet with food or milk Omeprazole [facility] [address]-57 20 MG Orally Once a day May 30, 2015 1 capsule Springer [facility] [address]-09 5-325 MG Orally BID November 05, 2015 1 tablet as needed Procedures Procedure Coding System Code Date Office Visit, Est Pt., Level 4 CPT-4 62186 November 05, 2015 Vital Signs Date/Time: November 05, 2015 Cardiac Monitoring Heart Rate 80 bpm Weight 124 lbs Height 59 in Blood Pressure Diastolic 80 mmHg Blood Pressure Systolic 118 mmHg Results No Known Results Summary Purpose [employer] Submission
--- OUTSIDE RECORDS SUMMARY | 2017-03-27 18:48 | XMS REPORT ---
Author ALLY Bueno [employer] Address Unknown Phone Unavailable Care Team Providers Care Keno Writer / Runner Name Role Phone ALLY VILCHIS CP Unavailable Allergies, Adverse Reactions, Alerts Substance Reaction Event Type Penicillin V Potassium hives Drug Allergy Problems Problem Type Condition Code Onset Dates Condition Status Problem Panic disorder F41.0 Active Assessment Dental examination Z01.20 Active Problem Gastroesophageal reflux disease, [...] Start Date End Date Status Dosage Gabapentin [facility] [address]-83 300 MG Orally Three times a day November 05, 2015 1 capsule Clindamycin HCl [facility] [address]-79 150 MG Orally every 8 hrs 2 capsules Lidocaine [facility] [address]-81 5 % Externally Once a day August 22, 2015 1 patch to intact skin remove after 12 hours Celebrex [facility] [address]-78 200 MG Orally Once a day 1 capsule Fluoxetine HCl [facility] [address]-17 40 MG Orally once a day October 04, 2014 1 capsule in the morning Potassium Chloride [facility] [address]-45 10 MEQ Orally Once a day Jan 04, 2014 10 mEq by Oral route 1 time per day Ferrous Sulfate [facility] [address]-00 325 (65 Fe) MG Orally Twice a day, please provide [place] islander instructions October 04, 2014 1 tablet Bentyl [facility] [address]-62 20 MG Orally Four times a day Jan 14, 2016 Feb 13, 2016 1 tablet Baclofen [facility] [address]-01 10 MG Orally Three times a day, please provide [place] islander instructions Jan 02, 2015 1 tablet with food Fluoxetine HCl [facility] [address]-96 20 MG Orally Once a day Dec 03, 2015 1 capsule in the morning Procedures Procedure Coding System Code Date PANORAMIC FILM SEE ALSO CODE 90030 CPT-4 D0330 Feb 12, 2016 COMP ORAL EVALUATION - NEW/EST PT CPT-4 D0150 Feb 12, 2016 Vital Signs Date/Time: Feb 12, 2016 Blood Pressure Diastolic 88 mmHg Blood Pressure Systolic 133 mmHg Height 59 in Results No Known Results Summary Purpose [employer]ClinicalWorks Submission
--- OUTSIDE RECORDS SUMMARY | 2017-03-27 18:48 | XMS REPORT ---
Author Author JACKY SHAVER [facility] [employer] Address Unknown Phone Unavailable Care Team Providers Care Sorting Machine Operator Name Role Phone JACKY SHAVER CP Unavailable Allergies No Known Allergies Problems Problem Type Condition ICD-9 Code Onset Dates Condition Status Problem Hip, thigh, leg, and ankle, insect bite, nonvenomous, without mention of infection 916.4 Active Problem Pain in joint, pelvic region and thigh 719.45 Active Problem Cervicalgia 723.1 Active Problem General counseling for initiation of other contraceptive measures V25.02 Active Problem Disruption of external operation (surgical) wound 998.32 Active Problem Other general counseling and advice for contraceptive management V25.09 Active Problem Depressive disorder, not elsewhere classified 311 Active Problem Dermatophytosis of the body 110.5 Active Problem Lumbago 724.2 Active Problem Anxiety state, unspecified 300.00 Active Problem Abdominal pain, right upper quadrant 789.01 Active Problem Major depressive disorder, recurrent episode, moderate 296.32 Active Assessment Dental examination V72.2 Active Problem Unspecified anemia 285.9 Active Problem Other and unspecified ovarian cyst 620.2 Active Problem Urinary frequency 788.41 Active Problem Need for prophylactic vaccination and inoculation, Influenza V04.81 Active Problem Unspecified concussion 850.9 Active Problem Urinary tract infection, site not specified 599.0 Active Problem Acute serous otitis media 381.01 Active Medications No Known Medications Procedures Procedure Coding System Code Date RESIN COMPOS - 2 SURFACES POSTERIOR CPT-4 D2392 Dec 26, 2014 Results No Known Results Summary Purpose [employer] Submission
--- OUTSIDE RECORDS SUMMARY | 2017-03-27 18:48 | XMS REPORT | Continuity of Care Document ---
Author Author [facility] Organization [facility] Address [facility] [address] [place] [address] Phone Unavailable Support Name Relationship Address Phone TIKA HOLCOMB D.O. Caregiver [address] [place] [address] BELEN ATKINS Next Of Kin [address] [place], [place] [id number] Insurance Providers Payer Name Policy Number Subscriber Name Relationship Avelino [facility] [id number] CarlinAggie 18 Self / Same As Patient Advance Directives Directive Response Recorded Date/Time Advance Directives No 09/29/15 10:11am Living Will No 09/29/15 10:11am Power of Flash Welding Machine Operator for Health Care No 09/29/15 10:11am Organ, Tissue, or Eye Donor No 09/29/15 10:10am Do you have a signed organ donor card? No 09/29/15 10:10am Chief Complaint and Reason for Visit Chief Complaint FOOT PROBLEM Reason for Visit [id number] Problems Active Problems Medical Problem Onset Date [...] Unknown Acute Sacral fracture, closed Unknown Acute Medications Current Home Medications Medication Dose Units Route Directions Days/Qty Instructions Start Date Fluoxetine Hcl 10 Mg Unknown Dose Oral Daily 30 09/29/15 Baclofen 10 Mg Unknown Dose Oral Three Times A Day 15 09/29/15 Potassium Chloride 10 Meq Unknown Dose Oral Twice A Day 60 09/29/15 Ferrous Gluconate 236 Mg Unknown Dose Oral 09/29/15 Indomethacin 50 Mg 50 Mg Oral Three Times A Day 30 10/10/15 Social History Social History Problem Response Recorded Date/Time Smoking Status Current every day smoker 09/29/2015 10:41am Tobacco Use Cigarettes 09/29/2015 10:41am Alcohol Use occasionally 10/10/2015 5:19am Sexual History Heterosexual 09/29/2015 10:41am Employment Unemployeed 10/10/2015 5:19am Query Response Start Date Stop Date Smoking Status Current every day smoker Hospital Discharge Instructions No hospital discharge instructions. Plan of Care Discharge Date 10/10/15 6:00am Condition at Discharge Stable Instructions/Education Provided Ankle Exercises (GEN) Ankle Strain (ED) Prescriptions See Medication Section Referrals ISMA PÉREZ M.D. - Functional Status Query Response Date Recorded [place] Coma Scale Total 15 October 10, 2015 5:15am Patient Behavior Cooperative Appropriate October 10, 2015 5:15am Allergies, Adverse Reactions, Alerts Allergen Type Severity Reaction Status Last Updated PENICILLIN Allergy Unknown Active 09/29/15 Immunizations Name Given Type Hx Diphtheria, Pertussis, Tetanus Vaccination Unknown Historical Hx Influenza Vaccination Y FALL 2014 Historical Hx Pneumococcal Vaccination N unknon Historical Vital Signs Acute Vital Signs Vital Response Date/Time Temperature (Fahrenheit) 98.6 degrees F (97.6 - 99.5) 10/10/2015 5:15am Temperature Source Temporal Artery 10/10/2015 5:15am Pulse Rate (adult) 70 bpm (60 - 90) 10/10/2015 5:15am Respiratory Rate 18 bpm (12 - 24) 10/10/2015 5:15am Blood Pressure 150/76 mm Hg 10/10/2015 5:15am O2 Sat by Pulse Oximetry 100 % (90 - 100) 10/10/2015 5:15am Oxygen Delivery Method 10/10/2015 5:15am Pain Location Body Site Modifier Lower 10/10/2015 5:50am Height 5 ft 3 in Weight 132 [...] Eosinophils (%) (Auto) 1.1 % 0-3 09/29/2015 9:50am 09/29/2015 10:01am Basophils (%) (Auto) 0.2 % 0.0-1.0 09/29/2015 9:50am 09/29/2015 10: 01am Neutrophils # (Auto) 7.2 K/uL H 2.0-6.9 09/29/2015 9:50am 09/29/2015 10: 01am Lymphocytes # (Auto) 1.3 K/uL 1.2-3.4 09/29/2015 9:50am 09/29/2015 10: 01am Monocytes # (Auto) 0.3 K/uL 0.1-0.6 09/29/2015 9:50am 09/29/2015 10: 01am Eosinophils # (Auto) 0.1 K/uL [...] Carbon Dioxide Level 24.2 mEq/L 21-32 09/29/2015 9:5009/29/2015 10: 09am Calcium Level 7.9 mg/dL L 8.8-10.5 09/29/2015 9:5009/29/2015 10:09am Total Protein 6.8 gm/dL 6.4-8.2 09/29/2015 9:5009/29/2015 10:09am Albumin 3.3 gm/dL L 3.4-5.0 09/29/2015 9:5009/29/2015 10:09am Total Bilirubin 0.35 mg/dL 0.00-1.00 09/29/2015 [...] 09/29/2015 12:00pm 09/29/2015 12: 18pm Urine Specific [place] 1.015 1.010-1.025 09/29/2015 12:00pm 2015 12:18pm Urine [...] lumbar spine without contrast Active 09/29/15 VILLA ESTEPHANIA DO Computed tomography of abdomen and pelvis with contrast Active 09/29/15 ESTEPHANIA VILLA DO X-ray of right shoulder, two or more views Active 09/29/15 VILLA,ESTEPHANIA DO Wrist Rt. 4 Views(3OR More) Active 09/29/15 ESTEPHANIA VILLA DO X-ray of pelvis, one or two views including anteroposterior view Active 09/28 VILLAESTEPHANIA DO X-ray of chest, single view Active 09/29/15 ESTEPHANIA VILLA DO X-ray of right elbow, two views Active 09/29/15 VILLAESTEPHANIA DO Computed tomography of right upper extremity without contrast Active ESTEPHANIA VILLA DO X-ray of right ankle, three or more views Completed 10/10/15 TIKA HOLCOMB D.O. Encounters Encounter Location Arrival/Admit Date Discharge/Depart Date Attending Provider Departed Emergency Room [place] 10/10/15 5:11am 10/10/15 6:00am TIKA HOLCOMB D.O. Departed Emergency Room [place] 09/29/15 9:15am 09/29/15 1:36pm ESTEPHANIA VILLA DO Recent Diagnosis
--- OUTSIDE RECORDS SUMMARY | 2017-03-27 18:48 | XMS REPORT ---
Author Author CYNDEEMELLISSA Organization [facility] Address [address] [place] [address] Care Team Providers Care M48 M60 Armor Crewman Name Role Phone MELLISSA COTTER Unavailable PROBLEMS Type Condition ICD9-CM Code HEV74-RE Code Onset Dates Condition Status SNOMED Code Problem Panic disorder F41.0 Active 326570684 Problem Abdominal pain, right upper quadrant R10.11 Active 590736939 Problem Postoperative hypothyroidism E89.0 Active 45483608 Problem Gastroesophageal reflux disease, esophagitis presence not specified K21.9 Active 327575315 Problem Pain in joint, pelvic region and thigh, right M25.551 Active 617453103 Problem Major depressive disorder, recurrent episode, moderate F33.1 Active 327188394 Problem Bilateral low back pain without sciatica M54.5 Active 568684735 Problem Other iron deficiency anemia D50.8 Active 98951739 ALLERGIES Substance Reaction Event Type Date Status Penicillin V Potassium hives Drug Allergy Jun, Active SOCIAL HISTORY Never Assessed PLAN OF CARE Activity Details Follow Up prn Reason:acute VITAL SIGNS Height 59 in 2016-06-25 Weight 123 lbs 2016-06-25 Temperature 98 degrees Fahrenheit 2016-06-25 Heart Rate 78 bpm 2016-06-25 Respiratory Rate 16 2016-06-25 BMI 24.84 kg/m2 2016-06-25 Blood pressure systolic 120 mmHg 2016-06-25 Blood pressure diastolic 82 mmHg 2016-06-25 MEDICATIONS Medication Instructions Dosage Frequency Start Date End Date Duration Status Celexa 20 MG Orally Once a day 1 tablet 24h Active Potassium Chloride 10 MEQ Orally Once a day 10 mEq by Oral route 1 time per day 24h Dec, Active Gabapentin 300 MG Orally Three times a day 1 capsule 8h Oct, Active Trazodone HCl 50 MG Orally Once a day 1 tablet at bedtime as needed 24h Active Bentyl 20 mg Orally Twice a day 1 tablet PRN stomach pain 12h May, August, 30 days Active Baclofen 10 mg Orally Three times a day, please provide south african instructions 1 tablet with food 30 Active Ferrous Sulfate 325 (65 Fe) MG Orally Twice a day, please provide [place]rican instructions 1 tablet Sep, Active Omeprazole 20 MG Orally Once a day 1 capsule 24h Jun, 90 days Active Levothyroxine Sodium 100 MCG Orally Once a day 1 tablet on an empty stomach in the morning 24h Active Tramadol HCl 50 mg Orally 2 times a day PRN 1 tablet as needed Active RESULTS Name Result Date Reference Range Ultrasound : Gallbladder PROCEDURES No Known procedures IMMUNIZATIONS No Known [...]
--- OUTSIDE RECORDS SUMMARY | 2017-03-27 18:48 | XMS REPORT ---
Author Author ANDREEA AGOSTO Organization [facility] Address [address] [place] [address] Care Team Providers Care Siphon Operator Name Role Phone ANDREEA AGOSTO Unavailable PROBLEMS Type Condition ICD9-CM Code WCK12-PB Code Onset Dates Condition Status SNOMED Code Problem Panic disorder F41.0 Active 154596341 Problem Abdominal pain, right upper quadrant R10.11 Active 233073823 Problem Postoperative hypothyroidism E89.0 Active 89656781 Problem Gastroesophageal reflux disease, esophagitis presence not specified K21.9 Active 628291809 Problem Pain in joint, pelvic region and thigh, right M25.551 Active 899230373 Problem Major depressive disorder, recurrent episode, moderate F33.1 Active 221315416 Problem Bilateral low back pain without sciatica M54.5 Active 914837638 Problem Other iron deficiency anemia D50.8 Active 45092086 ALLERGIES Unknown Allergies SOCIAL HISTORY No smoking Hx information available PLAN OF CARE Activity Details Follow Up excision of fibroma 1 hr Reason: VITAL SIGNS Height 59 in 2016-04-17 Heart Rate 70 bpm 2016-04-17 Blood pressure systolic 150 mmHg 2016-04-17 Blood pressure diastolic 84 mmHg 2016-04-17 MEDICATIONS Unknown Medications RESULTS No Results PROCEDURES Procedure Date Ordered Related Diagnosis Body Site RESIN COMPOS - 1 SURFACE POSTERIOR Apr 07, 2016 Billing Notes on claim Apr 17, 2016 IMMUNIZATIONS No Known Immunizations
--- OUTSIDE RECORDS SUMMARY | 2017-03-27 18:49 | XMS REPORT ---
Author Author MELLISSA COTTER Organization [employer] Address Unknown Phone Unavailable Care Team Providers Care Pitch Filler Name Role Phone MELLISSA COTTER CP Unavailable Allergies No Known Allergies Problems Problem Type Condition Code Onset Dates Condition Status Problem Bilateral low back pain without sciatica [...] Start Date End Date Status Dosage Gabapentin [facility] [address]-10 100 MG Orally Three times a day, please provide rwandan instructions October 04, 2014 1 capsule Results No Known Results Summary Purpose eClinicalWorks Submission
--- OUTSIDE RECORDS SUMMARY | 2017-03-27 18:49 | XMS REPORT ---
Author Author MELLISSA COTTER Organization [employer] Address Unknown Phone Unavailable Care Team Providers Care Processor Grain Name Role Phone MELLISSA COTTER CP Unavailable [...] Other iron deficiency anemia D50.8 Active Medications No Known Medications Results No Known Results Summary Purpose [employer]ClinicalWorks Submission
--- OUTSIDE RECORDS SUMMARY | 2017-03-27 18:49 | XMS REPORT ---
Author Author ANDREEA AGOSTO Organization [facility] Address [address] [place] [address] Care Team Providers Care Brass Burnisher Name Role Phone ANDREEA AGOSTO Unavailable PROBLEMS Type Condition ICD9-CM Code QIE19-TI Code Onset Dates Condition Status SNOMED Code Problem Panic disorder F41.0 Active 733819375 Problem Abdominal pain, right upper quadrant R10.11 Active 687426383 Problem Postoperative hypothyroidism E89.0 Active 56085229 Problem Gastroesophageal reflux disease, esophagitis presence not specified K21.9 Active 901335708 Problem Pain in joint, pelvic region and thigh, right M25.551 Active 044224532 Problem Major depressive disorder, recurrent episode, moderate F33.1 Active 544185140 Problem Bilateral low back pain without sciatica M54.5 Active 663890691 Problem Other iron deficiency anemia D50.8 Active 20123483 ALLERGIES Substance Reaction Event Type Date Status Penicillin V Potassium hives Drug Allergy Mar, Active SOCIAL HISTORY No smoking Hx information available PLAN OF CARE VITAL SIGNS Height 59 in 2016-03-31 Heart Rate 73 bpm 2016-03-31 Blood pressure systolic 120 mmHg 2016-03-31 Blood pressure diastolic 79 mmHg 2016-03-31 MEDICATIONS Medication Instructions Dosage Frequency Start Date End Date Duration Status Fluoxetine HCl 40 MG Orally once a day 1 capsule in the morning 24h Sep Active Potassium Chloride 10 MEQ Orally Once a day 10 mEq by Oral route 1 time per day 24h Dec, Active PreviDent 5000 Enamel Protect 1.1-5 % as directed Feb, Active Baclofen 10 mg Orally Three times a day, please provide slovak instructions 1 tablet with food Dec, Active Fluoxetine HCl 20 MG Orally Once a day 1 capsule in the morning 24h Nov Active Lidocaine 5 % Externally Once a day 1 patch to intact skin remove after 12 hours 24h Jul, Active Gabapentin 300 MG Orally Three times a day 1 capsule 8h Oct, Active Clindamycin HCl 150 MG Orally every 8 hrs 1 capsules 8h 10 days Active Ferrous Sulfate 325 (65 Fe) MG Orally Twice a day, please provide slovak instructions 1 tablet Sep, Active Celebrex 200 MG Orally Once a day 1 capsule 24h Active RESULTS No Results PROCEDURES Procedure Date Ordered Related Diagnosis Body Site TX PULPOT-CORONL DENTNOCEMENTL JUN Mar 31, 2016 Dental no charge Mar 31, 2016 IMMUNIZATIONS No Known Immunizations
--- OUTSIDE RECORDS SUMMARY | 2017-03-27 18:49 | XMS REPORT ---
Author Author ELIJAH ARMAS [facility] Address [address] [place] [address] Care Team Providers Care Lens Cementer Name Role Phone ELIJAH ARMAS Unavailable PROBLEMS Type Condition ICD9-CM Code [id number] Code Onset Dates Condition Status SNOMED Code Problem Major depressive disorder, recurrent episode, moderate F33.1 Active 527072799 Problem Panic disorder F41.0 Active 779391318 Problem Postoperative hypothyroidism E89.0 Active 91001011 Problem Gastroesophageal reflux disease, esophagitis presence not specified K21.9 Active 230064519 Problem Other iron deficiency anemia D50.8 Active 01595342 Problem Abdominal pain, right upper quadrant R10.11 Active 634898142 Problem Bilateral low back pain without sciatica M54.5 Active 735538579 Problem Pain in joint, pelvic region and thigh, right M25.551 Active 283579441 ALLERGIES Substance Reaction Event Type Date Status Penicillin V Potassium hives Drug Allergy Feb, Active SOCIAL HISTORY No smoking Hx information available PLAN OF CARE Activity Details Follow Up 2 hr rtc Reason: VITAL SIGNS Height 59 in 2016-03-11 Heart Rate 70 bpm 2016-03-11 Blood pressure systolic 154 mmHg 2016-03-11 Blood pressure diastolic 91 mmHg 2016-03-11 MEDICATIONS Medication Instructions Dosage Frequency Start Date End Date Duration Status PreviDent 5000 Enamel Protect 1.1-5 % as directed Feb, Active RESULTS No Results PROCEDURES Procedure Date Ordered Related Diagnosis Body Site RESIN COMPOS - 4/MORE SURFACES POST Mar 11, 2016 Billing Notes on claim Mar 11, 2016 IMMUNIZATIONS No Known Immunizations
--- OUTSIDE RECORDS SUMMARY | 2017-03-27 18:49 | XMS REPORT ---
Author Author MELLISSA COTTER Organization [employer] Address Unknown Phone Unavailable Care Team Providers Care Systems Architect Name Role Phone KING MELLISSA CP Unavailable Allergies, Adverse Reactions, Alerts Substance Reaction Event Type Penicillin V Potassium hives Drug Allergy Problems Problem Type Condition Code Onset Dates Condition Status Assessment Panic disorder F41.0 Active Problem Panic disorder F41.0 Active Assessment Pain in joint, pelvic region and thigh, right M25.551 Active Assessment Thyroid nodule E04.1 Active Problem Gastroesophageal reflux disease, esophagitis presence [...] Instructions Start Date End Date Status Dosage Fluoxetine HCl [facility] [address]-13 40 MG Orally once a day October 04, 2014 1 capsule in the morning Baclofen [facility] [address]-24 10 MG Orally Three times a day, please provide hungarian instructions Jan 02, 2015 1 tablet with food Omeprazole [facility] [address]-66 20 MG Orally Once a day May 30, 2015 1 capsule Gabapentin [facility] [address]-82 300 MG Orally Three times a day November 05, 2015 1 capsule Potassium Chloride [facility] [address]-53 10 MEQ Orally Once a day Jan 04, 2014 10 mEq by Oral route 1 time per day Fluoxetine HCl [facility] [address]-20 20 MG Orally Once a day Dec 03, 2015 1 capsule in the morning Celebrex [facility] [address]-85 200 MG Orally Once a day 1 capsule Procedures Procedure Coding System Code Date Office Visit, Est Pt., Level 4 CPT-4 00874 Dec 03, 2015 Vital Signs Date/Time: Dec 03, 2015 Cardiac Monitoring Heart Rate 74 bpm Weight 123 lbs Height 59 in BMI 24.84 Index Blood Pressure Diastolic 62 mmHg Blood Pressure Systolic 102 mmHg Results No Known Results Summary Purpose [employer] Submission
--- OUTSIDE RECORDS SUMMARY | 2017-03-27 18:49 | XMS REPORT ---
Author Author JACKY SHAVER Organization [facility] Address [address] [place] [address] Care Team Providers Care Head Porter Baggage Name Role Phone JACKY SHAVER Unavailable PROBLEMS Type Condition ICD9-CM Code RRD97-TX Code Onset Dates Condition Status SNOMED Code Problem Panic disorder F41.0 Active 988893179 Problem Abdominal pain, right upper quadrant R10.11 Active 764649505 Problem Postoperative hypothyroidism E89.0 Active 87080883 Problem Gastroesophageal reflux disease, esophagitis presence not specified K21.9 Active 798521872 Problem Pain in joint, pelvic region and thigh, right M25.551 Active 583561758 Problem Major depressive disorder, recurrent episode, moderate F33.1 Active 665765767 Problem Bilateral low back pain without sciatica M54.5 Active 448465970 Problem Other iron deficiency anemia D50.8 Active 94426500 ALLERGIES Unknown Allergies SOCIAL HISTORY No smoking Hx information available PLAN OF CARE VITAL SIGNS MEDICATIONS Unknown Medications RESULTS No Results PROCEDURES Procedure Date Ordered Related Diagnosis Body Site Dental Prepay for Future Services Apr 19, 2016 IMMUNIZATIONS No Known Immunizations
--- OUTSIDE RECORDS SUMMARY | 2017-03-27 18:49 | XMS REPORT ---
Author Author MARS Merchant Organization [facility] Address [address] [place] [address] Care Team Providers Care Snaker Tractor Driver Name Role Phone MARS Merchant Unavailable PROBLEMS Type Condition ICD9-CM Code KSP12-MM Code Onset Dates Condition Status SNOMED Code Problem Panic disorder F41.0 Active 325070546 Problem Abdominal pain, right upper quadrant R10.11 Active 869817312 Problem Postoperative hypothyroidism E89.0 Active 32832826 Problem Gastroesophageal reflux disease, esophagitis presence not specified K21.9 Active 350306085 Problem Pain in joint, pelvic region and thigh, right M25.551 Active 428161069 Problem Major depressive disorder, recurrent episode, moderate F33.1 Active 134251639 Problem Bilateral low back pain without sciatica M54.5 Active 419295967 Problem Other iron deficiency anemia D50.8 Active 38894948 ALLERGIES Substance Reaction Event Type Date Status Penicillin V Potassium hives Drug Allergy Apr, Active SOCIAL HISTORY No smoking Hx information available PLAN OF CARE Activity Details Follow Up prn Reason: VITAL SIGNS Height 59 in 2016-05-01 Weight 123 lbs 2016-05-01 Temperature 98.6 degrees Fahrenheit 2016-05-01 Heart Rate 78 bpm 2016-05-01 Respiratory Rate 18 2016-05-01 BMI 24.84 kg/m2 2016-05-01 Blood pressure systolic 128 mmHg 2016-05-01 Blood pressure diastolic 78 mmHg 2016-05-01 MEDICATIONS Medication Instructions Dosage Frequency Start Date End Date Duration Status Gabapentin 300 MG Orally Three times a day 1 capsule 8h Oct, Active Potassium Chloride 10 MEQ Orally Once a day 10 mEq by Oral route 1 time per day 24h Dec, Active Tramadol HCl 50 mg Orally 2 times a day PRN 1 tablet as needed Active PreviDent 5000 Enamel Protect 1.1-5 % as directed Feb, Active Baclofen 10 mg Orally Three times a day, please provide occitan instructions 1 tablet with food 30 Active Trazodone HCl 50 MG Orally Once a day 1 tablet at bedtime as needed 24h Active Celexa 20 MG Orally Once a day 1 tablet 24h Active RESULTS No Results PROCEDURES Procedure Date Ordered Related Diagnosis Body Site Office Visit, Est Pt., Level 3 May 01, 2016 IMMUNIZATIONS No Known Immunizations
--- OUTSIDE RECORDS SUMMARY | 2017-03-27 18:49 | XMS REPORT ---
Author Author MELLISSA COTTER Organization [employer] Address Unknown Phone Unavailable Care Team Providers Care Template Fitter Name Role Phone KING MELLISSA CP Unavailable Allergies, Adverse Reactions, Alerts Substance Reaction Event Type Penicillin V Potassium hives Drug Allergy Problems Problem Type Condition Code Onset Dates Condition Status Problem Panic disorder F41.0 Active Assessment Dental abscess K04.7 Active Problem Gastroesophageal reflux disease, esophagitis presence [...] Start Date End Date Status Dosage Celebrex [facility] [address]-15 200 MG Orally Once a day 1 capsule Lidocaine [facility] [address]-64 5 % Externally Once a day August 22, 2015 1 patch to intact skin remove after 12 hours Potassium Chloride [facility] [address]-57 10 MEQ Orally Once a day Jan 04, 2014 10 mEq by Oral route 1 time per day Omeprazole [facility] [address]-50 20 MG Orally Once a day May 30, 2015 1 capsule Clindamycin HCl [facility] [address]-39 300 MG Orally every 8 hrs Dec 26, 2015 Jan 02, 2016 1 capsule Fluoxetine HCl [facility] [address]-97 20 MG Orally Once a day Dec 03, 2015 1 capsule in the morning Fluoxetine HCl [facility] [address]-63 40 MG Orally once a day October 04, 2014 1 capsule in the morning Baclofen [facility] [address]-01 10 MG Orally Three times a day, please provide [place] instructions Jan 02, 2015 1 tablet with food Gabapentin [facility] [address]-17 300 MG Orally Three times a day November 05, 2015 1 capsule Procedures Procedure Coding System Code Date Office Visit, Est Pt., Level 3 CPT-4 80118 Dec 26, 2015 Vital Signs Date/Time: Dec 26, 2015 Cardiac Monitoring Heart Rate 76 bpm Weight 119 lbs Height 59 in BMI 24.03 Index Blood Pressure Diastolic 72 mmHg Blood Pressure Systolic 110 mmHg Results No Known Results Summary Purpose [employer] Submission
--- OUTSIDE RECORDS SUMMARY | 2017-03-27 18:49 | XMS REPORT | Continuity of Care Document ---
Author Author [facility] Organization [facility] Address [facility] [address] [place] [id number] Phone Unavailable Support Name Relationship Address Phone CRISTY CLAROS MD Caregiver [address] [place] [id number] Unavailable BELEN ATKINS Next Of Kin [address] [place], [place] [id number] Insurance Providers Payer Name Policy Number Subscriber Name Relationship Avelino Ramos [id number] Aggie Carlin 20 Self / Same As Patient Advance Directives Directive Response Recorded Date/Time Advance Directives No 09/29/15 10:11am Living Will No 09/29/15 10:11am Health Care Proxy No 10/20/15 11:02pm Power of Habilitation Training Specialist for Health Care No 09/29/15 10:11am Organ, Tissue, or Eye Donor No 09/29/15 10:10am Do you have a signed organ donor card? No 09/29/15 10:10am Chief Complaint and Reason for Visit Chief Complaint PELVIC PAIN Reason for Visit [id number] Problems Active Problems Medical Problem Onset Date [...] Bedtime as needed for Insomnia 10 10/20/15 Past Home Medications Medication Directions Ordered Status [...] discharge instructions. Plan of Care Discharge Date 10/21/15 12:05am Condition at Discharge Stable Instructions/Education Provided Pelvic Fracture (ED) Prescriptions See Medication Section Functional Status Query Response Date Recorded [place] Coma Scale Total 15 October 20, 2015 11:15pm Patient Behavior Fatigued Cooperative October 20, 2015 11:15pm Allergies, Adverse Reactions, Alerts Allergen Type Severity Reaction Status Last Updated PENICILLIN Allergy Unknown Active 09/29/15 Immunizations Name Given Type Hx Diphtheria, Pertussis, Tetanus Vaccination Up To Date Historical Hx Influenza Vaccination Y FALL 2014 Historical Hx Pneumococcal Vaccination No Historical Vital Signs Acute Vital Signs Vital Response Date/Time Temperature (Fahrenheit) 98.2 degrees F (97.6 - 99.5) 10/21/2015 12:00am Temperature Source Temporal Artery 10/21/2015 12:00am Pulse Rate (adult) 72 bpm (60 - 90) 10/21/2015 12:00am Respiratory Rate 17 bpm (12 - 24) 10/21/2015 12:00am Blood Pressure 139/85 mm Hg 10/21/2015 12:00am O2 Sat by Pulse Oximetry 96 % (90 - 100) 10/21/2015 12:00am Oxygen Delivery Method 10/21/2015 12:00am Pain Location Body Site Modifier 10/21/2015 12:03am Height 5 ft 3 in Weight 138 lb Body Mass Index 24.0 kg/m^2 Results Laboratory Results Test Name Result [...] RANGE Random Glucose 91 mg/dL 70-110 09/29/2015 9:09/29/2015 10:09am Blood Urea Nitrogen 14 mg/dL 7-18 [...] 09/29/2015 12:00pm 09/29/2015 12: 18pm Urine Specific [place] 1.015 1.010-1.025 09/29/2015 12:00pm 2015 12:18pm Urine [...] tomography of head without contrast Active 09/29/15 VILLA,ESTEPHANIA DO Computed tomography of cervical spine without contrast Active 09/29/15 VILLA,ESTEPHANIA DO Computed tomography of thoracic spine without contrast Active 09/29/15 VILLA,ESTEPHANIA DO Computed tomography of lumbar spine without contrast Active 09/29/15 VILLA ,ESTEPHANIA DO Computed tomography of abdomen and pelvis with contrast Active 09/29/15 VILLA,ESTEPHANIA DO X-ray of right shoulder, two or more views Active 09/29/15 VILLA,ESTEPHANIA DO Wrist Rt. 4 Views(3OR More) Active 09/29/15 VILLA,ESTEPHANIA DO X-ray of pelvis, one or two views including anteroposterior view Active 09/28 VILLA,ESTEPHANIA DO X-ray of chest, single view Active 09/29/15 VILLAESTEPHANIA DO X-ray of right elbow, two views Active 09/29/15 VILLA,ESTEPHANIA DO Computed tomography of right upper extremity without contrast Active VILLA,ESTEPHANIA DO X-ray of right ankle, three or more views Active 10/10/15 TIKA HOLCOMB D.O. Encounters Encounter Location Arrival/Admit Date Discharge/Depart Date Attending Provider Departed Emergency Room [place] 10/20/15 11:04pm 10/21/15 12:05am CRISTY CLAROS MD Departed Emergency Room [place] 10/10/15 5:11am 10/10/15 6:00am TIKA HOLCOMB D.O. Departed Emergency Room [place] 09/29/15 9:15am 09/29/15 1:36pm ESTEPHANIA VILLA DO Recent Diagnosis
--- OUTSIDE RECORDS SUMMARY | 2017-03-27 18:49 | XMS REPORT ---
Author Author ANDREY SUMMERS Organization [employer] Address Unknown Phone Unavailable Care Team Providers Care Armature Connector Name Role Phone ANDREY SUMMERS CP Unavailable Allergies No Known Allergies Problems Problem Type Condition Code Onset Dates Condition Status Problem Pain in joint, pelvic region and thigh, right M25.551 Active Problem Other iron deficiency anemia D50.8 Active Problem Bilateral low back pain without sciatica M54.5 Active Problem Panic disorder F41.0 Active Problem Abdominal pain, right upper quadrant R10.11 Active Problem Major depressive disorder, recurrent episode, moderate F33.1 Active Medications Medication Code System Code Instructions Start Date End Date Status Dosage Gabapentin [facility] [address]-09 100 MG Orally Three times a day, please provide malay instructions October 04, 2014 1 capsule Results No Known Results Summary Purpose [employer] Submission
--- OUTSIDE RECORDS SUMMARY | 2017-03-27 18:49 | XMS REPORT ---
Author Author ANDREY SUMMERS Organization [employer] Address Unknown Phone Unavailable Care Team Providers Care Qual Field Manager Name Role Phone ANDREY SUMMERS CP Unavailable [...] Date End Date Status Dosage Fluoxetine HCl [facility] [address]-53 20 MG Orally once daily, please provide jamaican instructions October 04, 2014 2 capsule in the morning Results No Known Results Summary Purpose [employer] Submission
--- OUTSIDE RECORDS SUMMARY | 2017-03-27 18:50 | XMS REPORT ---
Author Author CYNDEEMELLISSA Organization [facility] Address [address] [place] [address] Care Team Providers Care Rn Lpn Cna Name Role Phone MELLISSA COTTER Unavailable PROBLEMS Type Condition ICD9-CM Code GRS56-PE Code Onset Dates Condition Status SNOMED Code Problem Panic disorder F41.0 Active 304696044 Problem Abdominal pain, right upper quadrant R10.11 Active 944123865 Problem Postoperative hypothyroidism E89.0 Active 89416176 Problem Gastroesophageal reflux disease, esophagitis presence not specified K21.9 Active 225098500 Problem Pain in joint, pelvic region and thigh, right M25.551 Active 777400381 Problem Major depressive disorder, recurrent episode, moderate F33.1 Active 322097171 Problem Bilateral low back pain without sciatica M54.5 Active 775821275 Problem Other iron deficiency anemia D50.8 Active 72649580 ALLERGIES No Information SOCIAL HISTORY Never Assessed PLAN OF CARE VITAL SIGNS MEDICATIONS Medication Instructions Dosage Frequency Start Date End Date Duration Status Bentyl 20 mg Orally 2 times a day as needed for stomach pain 1 tablet May, Jun, 15 days Active RESULTS No Results PROCEDURES No Known [...]
--- OUTSIDE RECORDS SUMMARY | 2017-03-27 18:50 | XMS REPORT ---
Author Author ALLY Navarrete [facility] Address Unknown Care Team Providers Care Business Transformation Consultant Name Role Phone ALLY Navarrete Unavailable PROBLEMS Type Condition ICD9-CM Code QNB15-UG Code Onset Dates Condition Status SNOMED Code Problem Panic disorder F41.0 Active 215164372 Problem Abdominal pain, right upper quadrant R10.11 Active 883311005 Problem Postoperative hypothyroidism E89.0 Active 89160184 Problem Gastroesophageal reflux disease, esophagitis presence not specified K21.9 Active 989198797 Problem Pain in joint, pelvic region and thigh, right M25.551 Active 835741730 Problem Major depressive disorder, recurrent episode, moderate F33.1 Active 195776088 Problem Bilateral low back pain without sciatica M54.5 Active 121293555 Problem Other iron deficiency anemia D50.8 Active 12372127 ALLERGIES Unknown Allergies SOCIAL HISTORY No smoking Hx information available PLAN OF CARE Activity Details Follow Up prn Reason:wax try in VITAL SIGNS MEDICATIONS Unknown Medications RESULTS No Results PROCEDURES Procedure Date Ordered Related Diagnosis Body Site Dental no charge Apr 30, 2016 IMMUNIZATIONS No Known Immunizations
--- OUTSIDE RECORDS SUMMARY | 2017-03-27 18:50 | XMS REPORT ---
Author Author KING MELLISSA Organization [facility] Address [address] [place] [address] Care Team Providers Care Electrical Discharge Machine Operator Name Role Phone MELLISSA COTTER Unavailable PROBLEMS Type Condition ICD9-CM Code RGR53-EG Code Onset Dates Condition Status SNOMED Code Problem Panic disorder F41.0 Active 820978789 Problem Abdominal pain, right upper quadrant R10.11 Active 816995381 Problem Postoperative hypothyroidism E89.0 Active 89426144 Problem Gastroesophageal reflux disease, esophagitis presence not specified K21.9 Active 489321008 Problem Pain in joint, pelvic region and thigh, right M25.551 Active 980704697 Problem Major depressive disorder, recurrent episode, moderate F33.1 Active 589164350 Problem Bilateral low back pain without sciatica M54.5 Active 663684831 Problem Other iron deficiency anemia D50.8 Active 20501545 ALLERGIES No Information SOCIAL HISTORY Never Assessed PLAN OF CARE VITAL SIGNS MEDICATIONS Medication Instructions Dosage Frequency Start Date End Date Duration Status Levothyroxine Sodium 125 MCG Orally Once a day 1 tablet on an empty stomach in the morning 24h Jun, 30 day(s) Active RESULTS No Results PROCEDURES No Known [...]
--- OUTSIDE RECORDS SUMMARY | 2017-03-27 18:50 | XMS REPORT ---
Author Author ANDREEA AGOSTO Organization [facility] Address [address] [place] [address] Care Team Providers Care Hand Sign Writer Name Role Phone ANDREEA AGOSTO Unavailable PROBLEMS Type Condition ICD9-CM Code XXS66-MU Code Onset Dates Condition Status SNOMED Code Problem Panic disorder F41.0 Active 146690451 Problem Abdominal pain, right upper quadrant R10.11 Active 817908800 Problem Postoperative hypothyroidism E89.0 Active 06009121 Problem Gastroesophageal reflux disease, esophagitis presence not specified K21.9 Active 833514608 Problem Pain in joint, pelvic region and thigh, right M25.551 Active 406650461 Problem Major depressive disorder, recurrent episode, moderate F33.1 Active 813078443 Problem Bilateral low back pain without sciatica M54.5 Active 460382250 Problem Other iron deficiency anemia D50.8 Active 94888295 ALLERGIES Substance Reaction Event Type Date Status Penicillin V Potassium hives Drug Allergy Mar, Active SOCIAL HISTORY No smoking Hx information available PLAN OF CARE Activity Details Follow Up #28 Facial composite Reason: VITAL SIGNS Height 59 in 2016-04-07 Heart Rate 72 bpm 2016-04-07 Blood pressure systolic 124 mmHg 2016-04-07 Blood pressure diastolic 76 mmHg 2016-04-07 MEDICATIONS Medication Instructions Dosage Frequency Start Date End Date Duration Status Fluoxetine HCl 20 MG Orally Once a day 1 capsule in the morning 24h Nov Active Fluoxetine HCl 40 MG Orally once a day 1 capsule in the morning 24h Sep Active Potassium Chloride 10 MEQ Orally Once a day 10 mEq by Oral route 1 time per day 24h Dec, Active Celebrex 200 MG Orally Once a day 1 capsule 24h Active PreviDent 5000 Enamel Protect 1.1-5 % as directed Feb, Active Ferrous Sulfate 325 (65 Fe) MG Orally Twice a day, please provide icelandic instructions 1 tablet Sep, Active Gabapentin 300 MG Orally Three times a day 1 capsule 8h Oct, Active Baclofen 10 mg Orally Three times a day, please provide icelandic instructions 1 tablet with food Dec, Active Lidocaine 5 % Externally Once a day 1 patch to intact skin remove after 12 hours 24h Jul, Active Clindamycin HCl 150 MG Orally every 8 hrs 1 capsules 8h 10 days Active Clindamycin HCl 150 MG Orally every 8 hrs 2 capsules 8h 10 days Active RESULTS No Results PROCEDURES Procedure Date Ordered Related Diagnosis Body Site MOLAR Apr 07, 2016 Billing Notes on claim Apr 07, 2016 IMMUNIZATIONS No Known Immunizations
--- OUTSIDE RECORDS SUMMARY | 2017-03-27 18:50 | XMS REPORT ---
Author Author MELLISSA COTTER Organization [employer] Address Unknown Phone Unavailable Care Team Providers Care Cook Chief Name Role Phone MELLISSA COTTER CP Unavailable [...]
--- OUTSIDE RECORDS SUMMARY | 2017-03-27 18:50 | XMS REPORT ---
Author Author CYNDEEMELLISSA Organization [facility] Address [address] [place] [address] Care Team Providers Care Senior Financial Analyst Name Role Phone MELLISSA COTTER Unavailable PROBLEMS Type Condition ICD9-CM Code [id number] Code Onset Dates Condition Status SNOMED Code Problem Panic disorder F41.0 Active 968289539 Problem Abdominal pain, right upper quadrant R10.11 Active 787272692 Problem Postoperative hypothyroidism E89.0 Active 48731321 Problem Gastroesophageal reflux disease, esophagitis presence not specified K21.9 Active 364340145 Problem Pain in joint, pelvic region and thigh, right M25.551 Active 050169083 Problem Major depressive disorder, recurrent episode, moderate F33.1 Active 282729577 Problem Bilateral low back pain without sciatica M54.5 Active 288121375 Problem Other iron deficiency anemia D50.8 Active 02441461 ALLERGIES No Information SOCIAL HISTORY Never Assessed [...]
--- OUTSIDE RECORDS SUMMARY | 2017-03-27 18:50 | XMS REPORT ---
Author MELLISSA Verduzco Organization [employer] Address Unknown Phone Unavailable Care Team Providers Care Manager Intensive Care Name Role Phone MELLISSA COTTER CP Unavailable Allergies, Adverse Reactions, Alerts Substance Reaction Event Type Penicillin V Potassium hives Drug Allergy Problems Problem Type Condition Code Onset Dates Condition Status Assessment Bilateral low back pain without sciatica M54.5 Active Assessment Pain in joint, pelvic region [...] Start Date End Date Status Dosage Gabapentin [facility] [address]-37 100 MG Orally Three times a day, please provide latvian instructions October 04, 2014 1 capsule Baclofen [facility] [address]-01 10 MG Orally Three times a day, please provide latvian instructions Jan 02, 2015 1/2 tablet with food or milk Omeprazole [facility] [address]-26 20 MG Orally Once a day May 30, 2015 1 capsule Lidocaine [facility] [address]-37 5 % Externally Once a day August 22, 2015 1 patch to intact skin remove after 12 hours Potassium Chloride [facility] [address]-21 10 MEQ Orally Once a day Jan 04, 2014 10 mEq by Oral route 1 time per day Effexor XR [facility] [address]-26 150 MG Orally Once a day Apr 02, 2015 1 cap Fluoxetine HCl [facility] [address]-26 40 MG Orally once a day October 04, 2014 1 capsule in the morning Celebrex [facility] [address]-96 200 MG Orally Once a day 1 capsule Procedures Procedure Coding System Code Date Office Visit, Est Pt., Level 4 CPT-4 19403 August 22, 2015 Vital Signs Date/Time: August 22, 2015 Temperature 97.8 F Weight 129 lbs Height 59 in BMI 26.05 Index Blood Pressure Diastolic 76 mmHg Blood Pressure Systolic 122 mmHg Cardiac Monitoring Heart Rate 81 bpm Results No Known Results Summary Purpose [employer] Submission
--- OUTSIDE RECORDS SUMMARY | 2017-03-27 18:51 | XMS REPORT | Continuity of Care Document ---
Author Author [facility] Address Unknown Phone Unavailable Allergies [...] BURNS K 599.0 URINARY TRACT INFECTION 06/13/2012 [facility] PHANCSALCIDES K 620.2 OVARIAN CYST 06/13/2012 ALCIDES BURNS K V04.81 FLU DX (3 YRS AND ABOVE, IM) 06/13/2012 [facility], ALCIDES K 599.0 URINARY TRACT INFECTION 06/13/2012 [facility], ALCIDES K 620.2 OVARIAN CYST 06/13/2012 [facility], ALCIDES K V04.81 FLU DX (3 YRS AND ABOVE, IM) 06/13/2012 [facility], ALCIDES K 599.0 URINARY TRACT INFECTION 06/13/2012 [facility], ALCIDES K 620.2 [facility]VARIAN CYST [facility] V04.81 FLU DX (3 YRS [...] DX (3 YRS AND ABOVE, IM) 06/13/2012 [facility], ALCIDES K 599.0 URINARY TRACT INFECTION 06/13/2012 [facility], ALCIDES K 620.2 OVARIAN CYST 06/13/2012 [facility] K V04.81 FLU DX (3 YRS [...] [facility], ALCIDES K 620.2 OVARIAN CYST 06/13/2012 [facility] K V04.81 FLU DX (3 YRS [...] ALCIDES K 599.0 URINARY TRACT INFECTION 06/13/2012 [facility], ALCIDES K 620.2 OVARIAN CYST 06/13/2012 [...] Mchugh V25.09 CONTRACEPTIVE COUNSELING - GENERAL 06/28/2012 [facility], ALCIDES K V25.02 CONTRACEPTION - ANY METHOD 06/28/2012 [facility] K V25.09 CONTRACEPTIVE COUNSELING - GENERAL 06/28/2012 [facility], ALCIDES K V25.02 CONTRACEPTION - ANY METHOD 06/28/2012 [facility] K V25.09 CONTRACEPTIVE COUNSELING - GENERAL 06/28/2012 [facility], ALCIDES K V25.02 CONTRACEPTION - ANY METHOD 06/28/2012 [facility], ALCIDES K V25.09 CONTRACEPTIVE COUNSELING - GENERAL [...] MD V25.09 CONTRACEPTIVE COUNSELING - GENERAL 06/28/2012 [facility], ALCIDES Delacruz V25.02 CONTRACEPTION - ANY METHOD 06/28/2012 [facility] Delacruz V25.09 CONTRACEPTIVE COUNSELING - GENERAL [...] MD V25.09 CONTRACEPTIVE COUNSELING - GENERAL 06/28/2012 [facility], ALCIDES Delacruz V25.02 CONTRACEPTION - ANY METHOD 06/28/2012 [facility], ALCIDES K V25.09 CONTRACEPTIVE COUNSELING - GENERAL 06/28/2012 SHAYLA DANIELSON MD V25.02 CONTRACEPTION - ANY METHOD 06/28/2012 SHAYLA DANIELSON MD V25.09 CONTRACEPTIVE COUNSELING - GENERAL 06/28/2012 [facility], JACKY M V25.02 CONTRACEPTION - ANY METHOD 06/28/2012 [facility], JACKY M V25.09 CONTRACEPTIVE COUNSELING - GENERAL 06/28/2012 [facility], ALCIDES Delacruz V25.02 CONTRACEPTION - ANY METHOD 06/28/2012 [facility], ALCIDES Delacruz V25.09 CONTRACEPTIVE COUNSELING - GENERAL 06/28/2012 [facility], JACKY M V25.02 CONTRACEPTION - ANY METHOD 06/28/2012 [facility], JACKY M V25.09 CONTRACEPTIVE COUNSELING - GENERAL 11/04/2012 [facility], LAZARO L 381.01 ACUTE [...] THIGH LEG AND ANKLE WITHOUT INFECTION 11/04/2012 [facility], ALCIDES Delacruz 381.01 ACUTE SEROUS OTITIS MEDIA 11/04/2012 [facility], ALCIDES K 916.4 INSECT BITE NONVENOMOUS OF HIP THIGH LEG AND ANKLE WITHOUT INFECTION 11/04/2012 [facility], ALCIDES K 381.01 ACUTE SEROUS OTITIS MEDIA 11/04/2012 [facility], ALCIDES K 916.4 INSECT BITE NONVENOMOUS OF HIP THIGH LEG AND ANKLE WITHOUT INFECTION 11/04/2012 [facility], ALCIDES K 381.01 ACUTE SEROUS OTITIS MEDIA 11/04/2012 [facility], ALCIDES K 916.4 INSECT BITE NONVENOMOUS OF [...] LEG AND ANKLE WITHOUT INFECTION 11/04/2012 [facility], ALCIDES K 381.01 ACUTE SEROUS OTITIS MEDIA 11/04/2012 [facility], ALCIDES K 916.4 INSECT BITE NONVENOMOUS [...] LEG AND ANKLE WITHOUT INFECTION 11/04/2012 [facility], ALCIDSE K 381.01 ACUTE SEROUS OTITIS MEDIA 11/04/2012 [facility] 916.4 INSECT BITE NONVENOMOUS OF HIP THIGH LEG AND ANKLE WITHOUT INFECTION 11/04/2012 SHAYLA DANIELSON MD 381.01 ACUTE SEROUS OTITIS MEDIA 11/04/2012 SHAYLA DANIELSON MD 916.4 INSECT BITE NONVENOMOUS OF HIP THIGH LEG AND ANKLE WITHOUT INFECTION 11/04/2012 [facility], JACYK M 381.01 ACUTE SEROUS OTITIS MEDIA 11/04/2012 [...] DANIELSON MD 850.9 CONCUSSION UNSPECIFIED 10/05/2013 [facility], ALCIDES K 788.41 URINARY FREQUENCY 10/05/2013 [facility] [...] SHAYLA DANIELSON MD 850.9 CONCUSSION UNSPECIFIED 10/05/2013 [facility], ALCIDES K 788.41 URINARY FREQUENCY 10/05/2013 [facility], ALCIDES K 850.9 CONCUSSION UNSPECIFIED 10/05/2013 ELIAN [...] SHAYLA DANIELSON MD 850.9 CONCUSSION UNSPECIFIED 10/05/2013 [facility], ALCIDES K 788.41 URINARY FREQUENCY 10/05/2013 [facility], ALCIDES K 850.9 CONCUSSION UNSPECIFIED 10/05/2013 SHAYLA DANIELSON MD 788.41 URINARY FREQUENCY 10/05/2013 SHAYLA DANIELSON MD 850.9 CONCUSSION UNSPECIFIED 10/05/2013 [facility], JACKY M 788.41 URINARY FREQUENCY 10/05/2013 [facility], JACKY M 850.9 CONCUSSION UNSPECIFIED 10/05/2013 [facility], ALCIDES K 788.41 URINARY FREQUENCY 10/05/2013 [facility], ALCIDES K 850.9 CONCUSSION UNSPECIFIED 10/05/2013 [facility], JACKY M 788.41 URINARY FREQUENCY 10/05/2013 [facility], JACKY M 850.9 CONCUSSION UNSPECIFIED 11/01/2013 [facility], ALCIDES K 300.00 AN ANXIETY UNSPEC 11/01/2013 [facility], ALCIDES K 311 MO DEPRESS NOS 11/01/2013 [facility], ALCIDES K 300.00 AN ANXIETY UNSPEC 11/01/2013 [facility], ALCIDES K 311 MO DEPRESS NOS 11/01/2013 [facility], ALCIDES K 300.00 AN ANXIETY UNSPEC 11/01/2013 [facility], ALCIDES K 311 MO DEPRESS NOS 11/01/2013 SHAYLA DANIELSON MD 300.00 AN ANXIETY UNSPEC 11/01/2013 SHAYLA DANIELSON MD 311 MO DEPRESS NOS 11/01/2013 SHAYLA DANIELSON MD 300.00 AN ANXIETY UNSPEC 11/01/2013 HSAYLA DANIELSON MD 311 MO DEPRESS NOS 11/01/2013 SHAYLA DANIELSON MD 300.00 AN ANXIETY UNSPEC 11/01/2013 SHAYLA DANIELSON MD 311 MO DEPRESS NOS 11/01/2013 [facility], ALCIDES K 300.00 AN ANXIETY UNSPEC 11/01/2013 [facility], ALCIDES K 311 MO DEPRESS NOS 11/01/2013 MARS PLUMMER MD 300.00 AN ANXIETY UNSPEC 11/01/2013 MARS PLUMMER MD 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 11/01/2013 [facility], [...] JACKY M 300.00 AN ANXIETY UNSPEC 11/01/2013 [facility], JACKY M 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 [...] VERGARA, MARS 724.2 BACK PAIN, LOWER 12/01/2013 MARS PLUMMER MD 998.32 DISRUPTION OF EXTERNAL OPERATION (SURGICAL [...] JACKY M 724.2 BACK PAIN, LOWER 12/01/2013 GENSWEIKAMLA DDS, JACKY M 998.32 DISRUPTION OF EXTERNAL OPERATION ( SURGICAL) WOUND 12/01/2013 [facility], ALCIDES K 724.2 BACK PAIN, LOWER 12/01/2013 [facility], ALCIDES K 998.32 DISRUPTION OF EXTERNAL OPERATION ( SURGICAL) WOUND 12/01/2013 [facility], JACKY M 724.2 BACK PAIN, LOWER 12/01/2013 [facility], [...] 789.01 ABDOMINAL PAIN RIGHT UPPER QUADRANT 05/22/2014 SHAYLA DANIELSON MD A 285.9 ANEMIA 05/22/2014 SHAYLA [...] 06/07/2014 SHAYLA DANIELSON MD 723.1 CERVICALGIA 06/07/2014 SHAUNNAEIKAMLA DDS, JACKY Vazquez 110.5 TINEA CORPORIS 06/07/2014 GENROMÁNEIKAMLA DDS, JACKY M 719.45 PAIN IN JOINT [...] SIVAKUMAR JACOBSS, JACKY Vazquez 723.1 CERVICALGIA 07/24/2014 ALCIDSE BURNS 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 07/24/2014 SIVAKUMAR RAMIREZ, JACKY Vazquez 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 Procedures Code [place] [address] UA LONG DIP 06/13 63666 CULTURE URINE 18698 UA W/ CULTURE IF INDICATED 10/05/[address] HEAD/BRAIN W/O DYE 10/05/2013 91986 CULTURE URINE 03/2014 69511 PSYCH DIAGNOSTIC EVALUATION 11/03/2013 56441 PSYTX PT&/FAMILY 30 MINUTES 11/07/2013 90902 PSYTX PT&/FAMILY 30 MINUTES 11/17/2013 16395 PSYTX PT&/FAMILY 30 MINUTES 12/01/2013 08120 PSYTX PT&/FAMILY 30 MINUTES 12/08/2013 S0630 SUTURE REMOVAL 64082 PSYTX PT&/FAMILY 60 MINUTES 12/15/2013 46083 PSYTX PT&/FAMILY 30 MINUTES 01/03/2014 56080 ROUTINE VENIPUNCTURE 01/03/2014 14415 BMP 01/03/2014 64964 TSH 01/03/2014 42676 CBC NO 5 PART DIFFERENTIAL 01/03/2014 87142 PSYTX PT&/FAMILY 30 MINUTES 01/16/2014 48884 PSYTX PT&/FAMILY 30 MINUTES 04/03/2014 41241 ROUTINE VENIPUNCTURE 05/29/2014 28649 PERIPHERIAL BLOOD SMEAR 05/29/2014 50804 PSYTX PT&/FAMILY 30 MINUTES 07/24/2014 49171 PSYTX PT&/FAMILY 45 MINUTES 08/08/2014 Results Encounters ACCT No. Visit Date/Time Discharge Status Pt. Type Provider Facility Loc./Unit Complaint [id number] 08/08/2014 14:23:00 08/08/2014 23: 59:59 CLS Outpatient GENSWEIDER DDS, JACKY Vazquez [id number] 07/24/2014 10:52:00 07/24/2014 23: 59:59 CLS Outpatient ALCIDES BURNS [id number] 07/10/2014 11:15:00 07/10/2014 23: 59:59 CLS Outpatient [facility]WE[facility] DDS, JACKY Vazquez [id number] 06/07/2014 10:02:00 06/07/2014 23: 59:59 CLS Outpatient SHAYLA DANIELSON MD [id number] 05/29/2014 12:28:00 05/29/2014 23: 59:59 CLS Outpatient ALCIDES BURNS [id number] 04/03/2014 14:09:00 04/03/2014 23: 59:59 CLS Outpatient SHAYLA DANIELSON MD [id number] 01/16/2014 11:02:00 01/16/2014 23: 59:59 CLS Outpatient TALISHA DDSLAZARO [id number] 01/15/2014 00:00:00 01/15/2014 23: 59:59 CLS Outpatient LAZARO WOODALL DDS [id number] 01/03/2014 14:55:00 01/03/2014 23: 59:59 CLS Outpatient ELIAN VERGARA, MARS [id number] 12/15/2013 12:48:00 12/15/2013 23: 59:59 CLS Outpatient ALCIDES BURNS [id number] 12/08/2013 12:11:00 12/08/2013 23: 59:59 CLS Outpatient SHAYLA DANIELSON MD [id number] 12/04/2013 12:49:00 12/04/2013 23: 59:59 CLS Outpatient SHAYLA DANIELSON MD [id number] 12/01/2013 09:47:00 12/01/2013 23: 59:59 CLS Outpatient SHAYLA DANIELSON MD [id number] 11/17/2013 10:08:00 11/17/2013 23: 59:59 CLS Outpatient ALCIDES BURNS [id number] 11/07/2013 13:31:00 11/07/2013 23: 59:59 CLS Outpatient ALCIDES BURNS Nubia [id number] 11/01/2013 16:49:00 11/01/2013 23: 59:59 CLS Outpatient MEIR PHANSUSANNE CHATMANTRE Delacruz [id number] 10/05/2013 12:08:00 10/05/2013 23: 59:59 CLS Outpatient SHAYLA DANIELSON MD [id number] 10/05/2013 12:08:00 10/05/2013 23: 59:59 CLS Outpatient SHAYLA DANIELSON MD [id number] 01/04/2013 10:04:00 01/04/2013 23: 59:59 CLS Outpatient LAZARO WOODALL DDS [id number] 06/28/2012 14:32:00 06/28/2012 23: 59:59 CLS Outpatient [id number] 06/13/2012 11:16:00 06/13/2012 23: 59:59 CLS Outpatient SHAYLA DANIELSON MD [id number] 06/13/2012 12:55:27 RECURRING
[2017-03-27] MEDS ORDERED: CITA20TA7 (19:03)
[2017-03-27 19:25] LABS: MEAN PLATELET VOLUME 11.1 FL (7.4-10.4); RED BLOOD COUNT 5.44 10^6/uL (4.35-5.85); WHITE BLOOD COUNT 7.8 10^3/uL (4.3-11.0)
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
[2017-03-27] MEDS ORDERED: NS 100 ML (IVPB) BAG IV ONE (19:30)
[2017-03-27] MEDS ORDERED: IOHEXOL 350 MG/ML 100 ML (OMNIPAQUE 350) VIAL IV ONE (19:30)
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
[2017-03-27 19:41] LABS: ALANINE AMINOTRANSFERASE 22 U/L (0-55); ALBUMIN 4.1 GM/DL (3.2-4.5); ALCOHOL < 10 MG/DL (<10); ANION GAP 11 MMOL/L (5-14); ASPARTATE AMINO TRANSFERASE 25 U/L (5-34); BILIRUBIN,DIRECT 0.1 MG/DL (0.0-0.3); BILIRUBIN,INDIRECT 0.3 MG/DL; BILIRUBIN,TOTAL 0.4 MG/DL (0.1-1.0); BLOOD UREA NITROGEN 12 MG/DL (7-18); BUN/CREATININE RATIO 18; CALCIUM 9.4 MG/DL (8.5-10.1); CARBON DIOXIDE 24 MMOL/L (21-32); CHLORIDE 103 MMOL/L (98-107); CREATININE SERUM 0.68 MG/DL (0.60-1.30); GFR ESTIMATED > 60; GLUCOSE 100 MG/DL (70-105); POTASSIUM 3.7 MMOL/L (3.6-5.0); SODIUM 138 MMOL/L (135-145); TOTAL PROTEIN 8.2 GM/DL (6.4-8.2)
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
[2017-03-27] MEDS ORDERED: KETOROLAC 30 MG/ML VIAL IVP ONE (21:15)
[2017-03-27] MEDS ORDERED: CYCL10TA9 PO (21:18)
[2017-03-27] MEDS ORDERED: NAPR500T4 PO (21:18)
[2017-03-27] MEDS ORDERED: RX-NAPROXEN (NAPROSYN) 250 MG TAB PPK#4 PO STA (21:19)
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
[2017-03-27 21:50] VITALS: BP 138/84
== END 2017-03-27 21:50 | disposition home or self-care (01) ==
LOC: EDUNIT# 18:41 → ER 18:42
DX: S16.1XXA Strain of muscle, fascia and tendon at neck level, initial encounter (principal); E03.9 Hypothyroidism, unspecified; F32.9 Major depressive disorder, single episode, unspecified; F17.210 Nicotine dependence, cigarettes, uncomplicated; Z90.89 Acquired absence of other organs; V63.5XXA Driver of heavy transport vehicle injured in collision with car, pick-up truck or van in traffic accident, initial encounter
CPT/HCPCS: 36415; 70450; 71010; 71260; 72125; 72128; 72131; 72170; 73030; 73590; 73610; 74177; 80048; 80076; 80320; 84703; 85027; 86850; 86870; 86900; 86901; 99285